=== PATIENT | male | born 1965 | race Caucasian/White ===

== ENCOUNTER 2017-06-15 11:26 | Inpatient (IN) ==
[2017-06-15 12:42] LABS: Basophils % 0.3 % (0.1-2.0); Eosinophils # 0.1 K/mm3 (0.0-0.4); Eosinophils % 0.8 % (0.1-12.0); Hematocrit 45.1 % (42.0-52.0); Lymphocytes # 1.1 K/mm3 (0.7-4.5); Lymphocytes % 8.1 K/mm3 (10-50); Mean Corpuscular HGB Conc 33.2 g/dL (31.8-35.4); Mean Corpuscular Hemoglobin 30.3 pg (27.0-31.2); Mean Corpuscular Volume 91.3 fl (80-94); Mean Platelet Volume 9.8 fl (7.4-10.4); Monocytes # 0.6 K/mm3 (0.1-1.0); Monocytes % 4.4 % (1.7-9.3); Neutrophils # 11.6 K/mm3 (1.8-7.8); Neutrophils % 86.4 % (37.0-80.0); Platelet Count 226 K/mm3 (142-424); Red Blood Count 4.94 M/mm3 (4.60-6.20); Red Cell Distribution Width 12.9 % (11.5-17.5); White Blood Count 13.4 K/mm3 (4.8-10.8)
[2017-06-15 12:54] LABS: Microscopic, Urine URINE MICROSCOPIC (MICROSCOPIC)
[2017-06-15 12:55] LABS: Albumin Level 4.3 gm/dL (3.4-5.0); Albumin/Globulin Ratio 1.2 (1.1-1.8); Anion Gap 11.9 mEq/L (5-15); Bilirubin,Total 0.6 mg/dL (0.2-1.0); Calcium 9.9 mg/dL (8.5-10.1); Globulin 3.5 gm/dl (1.3-3.2); Potassium 3.9 mmoL/L (3.5-5.1); Total Protein,Serum 7.8 gm/dL (6.4-8.2)
[2017-06-15 12:56] LABS: Appearance,Urine CLEAR (Clear); Blood, Urine Negative (Negative); Color,Urine YELLOW (Yellow); Glucose,Urine (UA) Negative (Negative); Ketones,Urine TRACE (Negative); Leukocyte Esterase,Urine Negative (Negative); Protein,Urine TRACE (Negative); Specific Gravity, Urine 1.025 (1.005-1.030); Urobilinogen,Urine 0.2 EU/dl (0.2)
--- NOTE | 2017-06-15 13:01 | Emergency Department Note ---
ED Disposition Clinical Impression: Rectal bleeding, Colitis Disposition: Still a Patient Condition on Discharge: Fair Instructions: DI for Acute Abdomen - Critical Care Critical Care Time: No Attestation: On 06/15/17, the high probability of a clinically significant, sudden or life threatening deterioration of the following system(s) required my full and direct attention, intervention and personal management. The time I documented below is in addition to time spent performing reported procedures but includes the following listed in this critical care notation. Medical Decision Making - David Inquiry Pt receiving controlled substance: No David was queried for this patient: No Vital Signs: 06/15/17 12:04 Temperature 97.6 F Temperature Source Oral Pulse Rate [Right Radial] 71 Respiratory Rate 22 Blood Pressure [Right Arm] 157/78 Blood Pressure Mean [Right Arm] 104 02 Sat by Pulse Oximetry 97 Oxygen Delivery Method Nasal Cannula Oxygen Flow Rate (LPM) 2 - Lab Data Lab Results 06/15/17 12:25: WBC 13.4 H, RBC 4.94, Hgb 15.0, Hct 45.1, MCV 91.3, MCH 30.3, MCHC 33.2, RDW 12.9, Plt Count 226, MPV 9.8, Neut % (Auto) 86.4 H, Lymph % (Auto ) 8.1 L, Irwin % (Auto) 4.4, Eos % (Auto) 0.8, Baso % (Auto) 0.3, Neut # (Auto) 11.6 H, Lymph # (Auto) 1.1, Irwin # (Auto) 0.6, Eos # (Auto) 0.1, Baso # (Auto) 0.0, Total Counted 100, Neutrophils % (Manual) 82 H, Lymphocytes % (Manual) 13, Monocytes % (Manual) 5, Platelet Estimate Normal, RBC Morphology Normal 06/15/17 12:25: Sodium 139, Potassium 3.9, Chloride 102, Carbon Dioxide 29, Anion Gap 11.9, BUN 29 H, Creatinine 1.57 H, Estimated Creat Clear 66, Estimated GFR 47 L, Est GFR ( Amer) 57 L, Glucose 174 H, Calcium 9.9, Total Bilirubin 0.6, AST 27, ALT 27, Alkaline Phosphatase 101, Total Protein 7.8 , Albumin 4.3, Globulin 3.5 H, Albumin/Globulin Ratio 1.2, Amylase 111, Lipase 73 06/15/17 12:25: Lactic Acid 0.7 06/15/17 12:49: Urine Color Yellow, Urine Appearance Clear, Urine pH 6.0, Ur Specific [place] 1.025, Urine Protein Trace, Urine Glucose (UA) Negative, Urine Ketones Trace, Urine Blood Negative, Urine Nitrate Negative, Urine Bilirubin 1+ A, Urine Urobilinogen 0.2, Ur Leukocyte Esterase Negative, Urine RBC None, Urine WBC None, Ur Squamous Epith Cells Occasional, Urine Bacteria Trace 06/15/17 12:56: Stool Occult Blood Positive A Result diagrams: 06/15/17 12:25 06/15/17 12:25 Orders (Tests/Meds): ED MEDICATIONS Generic Name Dose Route Start Last Admin Trade Name Freq PRN Reason Stop Dose Admin Levofloxacin/Dextrose 750 mg in 150 mls @ 100 mls/hr 06/15/17 13:00 06/15/17 13:48 Levofloxacin 750mg/150ml Premix IV 06/29/17 12:59 100 mls/hr Q24H RADHA Administration Protocol Metronidazole 100 mls @ 100 mls/hr 06/15/17 13:00 06/15/17 13:07 Flagyl 500mg/100ml Ivpb IV 06/29/17 12:59 100 mls/hr Q8H RADHA Administration Protocol Morphine Sulfate 2 mg 06/15/17 12:56 Morphine 2mg/2ml Syringe IV 07/15/17 12:55 [id number] PRN Severe Pain Discontinued Medications Generic Name Dose Route Start Last Admin Trade Name Freq PRN Reason Stop Dose Admin Lactated Ringer's 1,000 mls @ 999 mls/hr 06/15/17 12:30 06/15/17 12:31 Lactated Ringer's 1000 Ml Bag IV 06/15/17 13:30 999 mls/hr .Q1H1M RADHA Administration Iopamidol 75 ml 06/15/17 13:37 06/15/17 13:38 [id number]; 50ml Vial IV 06/15/17 13:38 75 ml ONCE ONE Administration Ondansetron HCl 4 mg 06/15/17 12:56 06/15/17 13:07 Zofran 4mg/2ml Vial IV 06/15/17 12:57 4 mg ONCE ONE Administration ORDERS Category Date Time Status Diarrhea Panel, PCR Stat Lab 06/15/17 12:29 Ordered Blood Culture Stat Micro 06/15/17 12:25 Received - CT Data CT Scan: Abdomen, Pelvis Time Received: 14:[address] Reviewed: Yes: I have viewed the radiologist's interpretation Preliminary Findings: Abnormal Findings Narrative: please see the report. Medical Decision Narrative: [address] report with Dr. Sharma the radiologist. He had normal lactic acid and patent superior mesenteric artery. [address] Prieto the surgeon or surgeon who advised to admit the patient and he was seen was in an consultation. [address] Zepeda the on-call medical doctor who accepted to admit the patient for IV fluids antibiotics IV antibiotics pain management and repeat blood work. The patient remained hemodynamically stable his pain was better controlled with morphine IV. Discussed the above findings with the patient and his who was agreeable for admission. Abdominal Pain HPI - General Chief Complaint: Abdominal Pain Stated Complaint: bleeding from rectum Time Seen by Provider: 06/15/17 12:40 Mode of Arrival: Family Vehicle Limitations: No Limitations Description of Symptoms (Recalled from ER Triage Doc. by RN): pt c/o right lower quad pain with rectal bleeding and chills. pt has altered mental status. - History of Present Illness HPI narrative: 51 years old white male with a known past medical history of reflux disease and hypertension. He has been experiencing right sided abdominal pain for the past week that became worse in the last 4 hours and had bowel movements with blood x 3. No history of colonoscopy or colon cancer. MD complaint: abdominal pain Onset (ago): week(s) (one week. worse x 4 hours.) Consistency: constant Severity: severe Quality: sharp Radiation: none Relieving factors: nothing Exacerbating factors: nothing Associated symptoms: other (melanotic stool. ) - Related Data Home Medications Medication Instructions Recorded Confirmed Amitriptyline HCl [Elavil 50mg 50 mg PO DAILY 06/15/17 06/15/17 tablet] Atorvastatin Calcium [Atorvastatin 40 mg PO DAILY 06/15/17 06/15/17 40mg Tab] Dextroamphetamine/Amphetamine 10 mg PO DAILY 06/15/17 06/15/17 [Adderall Xr 10 mg Capsule] Lisinopril [Lisinopril 40mg Tablet] 40 mg PO DAILY 06/15/17 06/15/17 Nabumetone [Nabumetone] 750 mg PO DAILY 06/15/17 06/15/17 Omeprazole [Omeprazole 40mg 40 mg PO DAILY 06/15/17 06/15/17 Capsule] Ondansetron HCl [Ondansetron 4mg 4 mg PO Q6 PRN 06/15/17 06/15/17 Tab] Sertraline HCl [Zoloft 100mg 100 mg PO DAILY 06/15/17 06/15/17 tablet] Tamsulosin HCl [Flomax 0.4mg 0.4 mg PO HS 06/15/17 06/15/17 capsule] Tramadol HCl [Ultram Take Home 50 mg PO QID 06/15/17 06/15/17 Pack 50mg (10)] Allergies Allergy/AdvReac Type Severity Reaction Status Date / Time quetiapine [From SEROQUEL] Allergy Mild Verified 06/15/17 12:32 Penicillins [PENICILLINS] Allergy Unknown Verified 06/15/17 12:32 [facility] History I have reviewed the patient's past medical history: Yes (by the patietn and his . ) Laterality Cases: Bilateral: Carpal Tunnel Release - Social History Smoking Status: Current every day smoker Tobacco Type: cigarettes Alcohol Intake: never - Psychiatric History Expresses thoughts of harming self/others: None Suicide Plan Description: No Plan ROS Obtained: Yes All systems reviewed & no additional complaints Physical Exam - General General appearance: alert, in distress Comment: he is rolling in bed from pain. - Head Head exam: atraumatic, normocephalic, normal inspection - Eye Eye exam: Present: normal appearance, PERRL, EOMI - ENT ENT exam: Present: normal exam, normal oropharynx, mucous membranes moist, TM's normal bilaterally, normal external ear exam - Neck Neck exam: Present: normal inspection, full ROM, trachea midline. Absent: meningismus, lymphadenopathy - Chest Chest inspection: Present: normal inspection, symmetric chest wall rise. Absent : tenderness - Respiratory Respiratory exam: Present: normal lung sounds bilaterally. Absent: respiratory distress - Cardiovascular Cardiovascular exam: Present: regular rate, normal rhythm. Absent: JVD - Abdominal Exam Abdominal exam: Present: soft, normal bowel sounds, other (I repeated his abdominal exam that was soft nontender no guarding no rigidity no rebound no cross tenderness. ). Absent: distention, tenderness, guarding, rebound, rigidity - Rectal Exam Rectal exam: Present: normal inspection, normal rectal tone, heme (+) stool - exam: Present: normal inspection, normal testicular lie, circumcised - Extremities Exam Extremities exam: Present: normal inspection, full ROM, normal capillary refill. Absent: calf tenderness - Back Exam Back exam: Present: normal inspection. Absent: tenderness - Neurological Exam Neurological exam: Present: alert, oriented X3, motor sensory deficit, reflexes normal - Psychiatric Psychiatric exam: Present: normal affect, normal mood - Skin Skin exam: Present: warm, dry, intact, normal color - Lymphatic Lymphatic Findings: no adenopathy
[2017-06-15 13:03] LABS: Bacteria,Urine Trace /lpf; Bilirubin,Urine 1+ (Negative); Squamous Epithelial Cell,Urine Occasional #/hpf (0-5)
[2017-06-15 13:10] LABS: Lymphocytes % 13 % (10-50); Monocytes % 5 % (2-9); Neutrophils % 82 % (42-76); RBC Morphology Normal; Total Cells Counted 100
--- NOTE | 2017-06-15 14:44 | Consult Report ---
*Admission Date: 06/15/17 *Chief complaint: Abdominal pain; blood in stool *History of present illness: This is a 51-year-old gentleman who presented to the emergency department with 4 -5 days of pain throughout the abdomen. He describes the pain as "sharp and crampy". Severity ranges from 5-10 out of 10. No fevers. Mild nausea. No emesis. No recent sick contacts. No melena. Over the past 24 hours she has had a few episodes of what he describes as bright blood in stool. Evaluation in the emergency department included a CT scan that showed changes consistent with colitis. Review of Systems - Constitutional Denies chills - Eyes Denies change in vision - *Cardiovascular Denies chest pain - *Gastrointestinal Reports abdominal pain, Reports bright, red blood in stools [facility] History Medical History: Reports:: Hyperlipidemia, Hypertension Denies:: Asthma, Cancer, Congestive Heart Failure, Chronic Obstructive Pulmonary Disease (COPD) Other Medical History: Denies: Anemia Laterality Cases: Bilateral: Carpal Tunnel Release - *Social History Smoking Status: Current every day smoker Tobacco Type: cigarettes Alcohol Intake: never - Psychiatric History Expresses thoughts of harming self/others: None Suicide Plan Description: No Plan Meds Home Medications Medication Instructions Recorded Confirmed Type Amitriptyline HCl [Elavil 50mg 50 mg PO DAILY 06/15/17 06/15/17 History tablet] Atorvastatin Calcium [Atorvastatin 40 mg PO DAILY 06/15/17 06/15/17 History 40mg Tab] Dextroamphetamine/Amphetamine 10 mg PO DAILY 06/15/17 06/15/17 History [Adderall Xr 10 mg Capsule] Lisinopril [Lisinopril 40mg Tablet] 40 mg PO DAILY 06/15/17 06/15/17 History Nabumetone [Nabumetone] 750 mg PO DAILY 06/15/17 06/15/17 History Omeprazole [Omeprazole 40mg 40 mg PO DAILY 06/15/17 06/15/17 History Capsule] Ondansetron HCl [Ondansetron 4mg 4 mg PO Q6 PRN 06/15/17 06/15/17 History Tab] Sertraline HCl [Zoloft 100mg 100 mg PO DAILY 06/15/17 06/15/17 History tablet] Tamsulosin HCl [Flomax 0.4mg 0.4 mg PO HS 06/15/17 06/15/17 History capsule] Tramadol HCl [Ultram Take Home 50 mg PO QID 06/15/17 06/15/17 History Pack 50mg (10)] Allergies Allergy/AdvReac Type Severity Reaction Status Date / Time quetiapine [From SEROQUEL] Allergy Mild Verified 06/15/17 12:32 Penicillins [PENICILLINS] Allergy Unknown Verified 06/15/17 12:32 Exam Vital signs and Labs for Last 24 Hours: Temp Pulse Resp BP Pulse Ox 97.6 F 71 22 157/78 97 06/15/17 12:04 06/15/17 12:04 06/15/17 12:04 06/15/17 12:04 06/15/17 12:04 - Constitutional mild distress - *Routine Respiratory Exam Absent: respiratory distress - *Routine Cardiovascular Exam Present: RRR - *Routine Abdominal Exam Present: soft, tenderness. Absent: rebound, guarding, rigid Comments: mild to moderate TTP - *Routine Extremities Exam Present: full ROM. Absent: cyanosis, clubbing, edema Results - Labs 06/15/17 12:25 06/15/17 12:25 Assessment and Plan (1) Colitis Current visit: Yes Status: Acute Category: Medical Code(s): K52.9 - Noninfective gastroenteritis and colitis, unspecified The patient is being admitted to the medical service for further evaluation and management. Antibiotics as per primary service Serial abdominal exams Repeat CBC and lactate in a.m. (2) Rectal bleeding Current visit: Yes Status: Acute Category: Medical Code(s): K62.5 - Hemorrhage of anus and rectum Likely secondary to colitis The patient will need a fairly short-term colonoscopy (outpatient). This can hopefully be delayed until he has recovered from his primary illness.
--- NOTE | 2017-06-15 17:07 | History & Physical Report ---
*Admission Date: 06/15/17 *History of present illness: This is a 51-year-old gentleman who presented to the emergency department with 4 -5 days of pain throughout the abdomen. He describes the pain as "sharp and crampy". Severity ranges from 5-10 out of 10. No fevers. Mild nausea. No emesis. No recent sick contacts. No melena. His significant other became concerned when he had at least 2 episodes this morning of feeling the need to use the toilet and produced only blood in the toilet bowl. His significant other states he has been sweaty at times in the himself endorses chills but no fevers. He believes he may had a similar episode of this a few months ago but does not believe the pain was nearly as intense noted symptoms last this long. He denies family history of inflammatory bowel disease. He had a grandfather with an unspecified cancer. Patient himself is a smoker of a pack a day for at least 37 years [facility] History Medical History: Reports:: Hyperlipidemia, Hypertension Denies:: Asthma, Cancer, Congestive Heart Failure, Chronic Obstructive Pulmonary Disease (COPD), Diabetes Mellitus Type 1, Diabetes Mellitus Type 2, Internal Pacemaker Other Medical History: Denies: Anemia Laterality Cases: Bilateral: Carpal Tunnel Release Other Surgeries: No: Pacemaker Amputation: No Fractures: No - *Social History Educational Level: Completed GED/General Educational Development Smoking Status: Current every day smoker Tobacco Type: cigarettes # Packs/Day (cigarettes): 1 #Yrs smoked (if former smoker): 33 Alcohol Intake: never Occupational Status: employed Housing: house Household Members: spouse - Psychiatric History Expresses thoughts of harming self/others: None Suicide Plan Description: No Plan *Family Hx:: Heart Attack, Hyperlipidemia, Hypertension, Kidney Disease, Stroke , Thyroid Disorder Review of Systems - Review of Systems Review of systems:: pertinent systems reviewed and negative unless documented below - Constitutional Reports chills - Eyes Denies change in vision - *Cardiovascular Denies chest pain - *Respiratory Denies shortness of breath - *Gastrointestinal Comments: See HPI - *Genitourinary Denies difficulty urinating Meds Home Medications Medication Instructions Recorded Confirmed Type Atorvastatin Calcium [Atorvastatin 40 mg PO DAILY 06/15/17 06/15/17 History 40mg Tab] Dextroamphetamine/Amphetamine 30 mg PO DAILY 06/15/17 06/15/17 History [Adderall Xr 10 mg Capsule] Lisinopril [Lisinopril 40mg Tablet] 40 mg PO DAILY 06/15/17 06/15/17 History Nabumetone [Nabumetone] 750 mg PO DAILY 06/15/17 06/15/17 History Omeprazole [Omeprazole 40mg 40 mg PO DAILY 06/15/17 06/15/17 History Capsule] Ondansetron HCl [Ondansetron 4mg 4 mg PO Q6 PRN 06/15/17 06/15/17 History Tab] Sertraline HCl [Zoloft 100mg 150 mg PO DAILY 06/15/17 06/15/17 History tablet] Tamsulosin HCl [Flomax 0.4mg 0.4 mg PO HS 06/15/17 06/15/17 History capsule] Tramadol HCl [Ultram Take Home 50 mg PO QID 06/15/17 06/15/17 History Pack 50mg (10)] Allergies Allergy/AdvReac Type Severity Reaction Status Date / Time quetiapine [From SEROQUEL] Allergy Mild Verified 06/15/17 12:32 Penicillins [PENICILLINS] Allergy Unknown Verified 06/15/17 12:32 Exam Vital signs and Labs for Last 24 Hours: Temp Pulse Resp BP Pulse Ox 97.7 F 56 L 18 155/81 97 06/15/17 15:08 06/15/17 15:08 06/15/17 15:08 06/15/17 15:08 06/15/17 12:04 Narrative: Patient is in bed and appears diaphoretic and pale. Skin is with the touch. Pupils are reactive to light. Oropharynx is moist. Neck is without lymphadenopathy. Lungs are clear to auscultation. Heart has a regular rate and rhythm. Abdomen is soft with initial right lower quadrant tenderness to palpation that dissipates with repeated examination. Bowel sounds are present. Assessment and Plan (1) Colitis Current visit: Yes Status: Acute Category: Medical Code(s): K52.9 - Noninfective gastroenteritis and colitis, unspecified (2) Rectal bleeding Current visit: Yes Status: Acute Category: Medical Code(s): K62.5 - Hemorrhage of anus and rectum - Assessment and plan all Dx Assessment and Plan for all problems:: Patient's colitis does not sound infectious. A diarrhea PCR panel will be ordered. I am actually going to hold antibiotics at this time. Consideration could be given to inflammatory bowel disease as patient recalls a similar episode although not as intense. At this time will begin primary treatment with IV fluids and keeping the patient n.p.o. and controlling pain. I have ordered an H&H for later this evening and a CBC has been ordered for the morning.
[2017-06-15 21:09] LABS: Hematocrit 42.8 % (42.0-52.0); Hemoglobin 14.5 g/dL (14.1-18.0)
[2017-06-16 06:42] LABS: Albumin Level 3.6 gm/dL (3.4-5.0); Albumin/Globulin Ratio 1.1 (1.1-1.8); Anion Gap 10.3 mEq/L (5-15); Bilirubin,Total 0.7 mg/dL (0.2-1.0); Globulin 3.3 gm/dl (1.3-3.2); Potassium 4.3 mmoL/L (3.5-5.1); Total Protein,Serum 6.9 gm/dL (6.4-8.2)
[2017-06-16 06:49] LABS: Hematocrit 41.5 % (42.0-52.0); Hemoglobin 14.2 g/dL (14.1-18.0); Mean Corpuscular HGB Conc 34.1 g/dL (31.8-35.4); Red Blood Count 4.56 M/mm3 (4.60-6.20); White Blood Count 16.6 K/mm3 (4.8-10.8)
[2017-06-16 06:50] LABS: Mean Platelet Volume 9.7 fl (7.4-10.4); Platelet Count 205 K/mm3 (142-424); Red Cell Distribution Width 12.8 % (11.5-17.5)
[2017-06-16 06:51] LABS: Basophils % 0.1 % (0.1-2.0); Eosinophils % 0.5 % (0.1-12.0); Lymphocytes % 5.9 K/mm3 (10-50); Monocytes % 5.9 % (1.7-9.3); Neutrophils # 14.5 K/mm3 (1.8-7.8); Neutrophils % 87.7 % (37.0-80.0)
[2017-06-16 06:53] LABS: Eosinophils # 0.1 K/mm3 (0.0-0.4)
--- NOTE | 2017-06-16 06:57 | Progress Note ---
Subjective Patient reports: no new complaints Exam Vital signs and Labs for Last 24 Hours: Temp Pulse Resp BP Pulse Ox 98.8 F 85 16 146/78 97 06/16/17 04:00 06/16/17 04:00 06/16/17 04:00 06/16/17 04:53 06/16/17 04:00 Laboratory Results - last 24 hr 06/15/17 20:57: Hgb 14.5, Hct 42.8 I & O for Last 24 hours: Intake & Output 06/13/17 06/14/17 06/15/17 06/16/17 11:59 11:59 11:59 11:59 Intake Total 1646 / 2896 Balance 1646 / 2646 - Constitutional no acute distress - *Routine Respiratory Exam Absent: respiratory distress - *Routine Abdominal Exam Present: soft Comments: somewhat less TTP Progress Note: A&P (1) Colitis Status: Acute Assessment and plan: Undetermined etiology...possible infectious origin...possible inflammatory bowel disease. Changes less likely secondary to ischemia. Serial abdominal exam Follow-up a.m. labs Colonoscopy may be required on a more urgent basis if he does not continue to improve or decompensates. Colonoscopy may also be necessary for further evaluation and management and determination of etiology. Otherwise, it will hopefully be accomplished as an outpatient after he improves. Possible GI consultation for evaluation (and treatment if he does not have infectious etiology). Current Visit: Yes (2) Rectal bleeding Status: Acute Current Visit: Yes
[2017-06-16 07:16] LABS: Calcium 8.8 mg/dL (8.5-10.1)
--- NOTE | 2017-06-16 07:38 | Progress Note ---
Internal Medicine - PN: Subj *Date: 06/16/17 *Time: 07:36 Interval history: Patient had another bloody bowel movement this morning but has not had any further vomiting. He continues to have abdominal pain Exam Vital signs and Labs for Last 24 Hours: Temp Pulse Resp BP Pulse Ox 98.8 F 85 16 146/78 97 06/16/17 04:00 06/16/17 04:00 06/16/17 04:00 06/16/17 04:53 06/16/17 04:00 Laboratory Results - last 24 hr 06/15/17 20:57: Hgb 14.5, Hct 42.8 06/16/17 06:15: WBC 16.6 H, RBC 4.56 L, Hgb 14.2, Hct 41.5 L, MCV 91.0, MCH 31.0 , MCHC 34.1, RDW 12.8, Plt Count 205, MPV 9.7, Neut % (Auto) 87.7 H, Lymph % ( Auto) 5.9 L, Green % (Auto) 5.9, Eos % (Auto) 0.5, Baso % (Auto) 0.1, Neut # ( Auto) 14.5 H, Lymph # (Auto) 1.0, Green # (Auto) 1.0, Eos # (Auto) 0.1, Baso # ( Auto) 0.0 06/16/17 06:15: Sodium 141, Potassium 4.3, Chloride 107, Carbon Dioxide 28, Anion Gap 10.3, BUN 17 D, Creatinine 0.99 D, Estimated Creat Clear 107, Estimated GFR 80, Est GFR ( Amer) 97 D, Glucose 142 H, Calcium 8.8 D, Magnesium 1.9, Total Bilirubin 0.7, AST 14 L D, ALT 23, Alkaline Phosphatase 83 , Total Protein 6.9, Albumin 3.6 D, Globulin 3.3 H, Albumin/Globulin Ratio 1.1 06/16/17 06:15: Lactic Acid 0.6 I & O for Last 24 hours: Intake & Output 06/13/17 06/14/17 06/15/17 06/16/17 11:59 11:59 11:59 11:59 Intake Total 1646 / 2896 Balance 1646 / 2646 Narrative: Patient looks better overall. Lungs are clear. Heart has a regular rate and rhythm. Abdomen is soft with mild left-sided tenderness today. No guarding. Assessment and Plan (1) Colitis Current visit: Yes Status: Acute Category: Medical Code(s): K52.9 - Noninfective gastroenteritis and colitis, unspecified (2) Rectal bleeding Current visit: Yes Status: Acute Category: Medical Code(s): K62.5 - Hemorrhage of anus and rectum - Assessment and plan all Dx Assessment and Plan for all problems:: Patient's white count has risen but H&H's remained stable. I am going to start Levaquin and Flagyl and continue daily Solu-Medrol for the possibility of inflammatory bowel disease. Repeat labs in a.m. Advance diet today
--- NOTE | 2017-06-16 07:43 | Pharmacy Consult Notes ---
[facility] Pharmacy VTE Monitoring - Patient Demographics Admission date: 06/15/17 Report Date: 06/16/17 Time: 07:43 Allergies/Adverse Reactions: Patient Allergies quetiapine [From SEROQUEL] Allergy (Mild, Verified 06/15/17 12:32) Penicillins [PENICILLINS] Allergy (Unknown, Verified 06/15/17 12:32) Height: 1.75 m Weight: 83.7 kg Patient Problems: Current Active Problems Rectal bleeding (Acute) Colitis (Acute) - VTE Risk Labs: VTE Related Lab Results Hgb 14.2 g/dL (14.1-18.0) 06/16/17 06:15 Hct 41.5 % (42.0-52.0) L 06/16/17 06:15 Plt Count 205 K/mm3 (142-424) 06/16/17 06:15 BUN 17 mg/dL (7-18) D 06/16/17 06:15 Creatinine 0.99 mg/dL (0.70-1.30) D 06/16/17 06:15 Estimated Creat Clear 107 mL/min (0-300) 06/16/17 06:15 Was VTE Risk Assessment Performed: Yes VTE Score: 1 VTE Risk Level: Very Low Risk Clinical Trial Participant: No - Prophylaxis VTE Prophylaxis Ordered?: Yes Types of VTE Prophylaxis: TEDS Knee High
[2017-06-16 11:50] LABS: Lymphocytes % 5 % (10-50); Monocytes % 4 % (2-9); Neutrophils % 89 % (42-76); Total Cells Counted 100
[2017-06-17 06:53] LABS: Basophils % 0.2 % (0.1-2.0); Eosinophils # 0.2 K/mm3 (0.0-0.4); Hematocrit 41.8 % (42.0-52.0); Hemoglobin 13.8 g/dL (14.1-18.0); Lymphocytes # 2.1 K/mm3 (0.7-4.5); Lymphocytes % 13.7 K/mm3 (10-50); Mean Corpuscular HGB Conc 32.9 g/dL (31.8-35.4); Mean Corpuscular Hemoglobin 30.4 pg (27.0-31.2); Mean Corpuscular Volume 92.4 fl (80-94); Mean Platelet Volume 9.6 fl (7.4-10.4); Monocytes # 0.7 K/mm3 (0.1-1.0); Monocytes % 4.9 % (1.7-9.3); Neutrophils % 80.1 % (37.0-80.0); Platelet Count 185 K/mm3 (142-424); Red Blood Count 4.53 M/mm3 (4.60-6.20); Red Cell Distribution Width 12.8 % (11.5-17.5); White Blood Count 14.9 K/mm3 (4.8-10.8)
[2017-06-17 07:05] LABS: Albumin Level 3.3 gm/dL (3.4-5.0); Anion Gap 8.8 mEq/L (5-15); Bilirubin,Total 0.6 mg/dL (0.2-1.0); Calcium 8.8 mg/dL (8.5-10.1); Globulin 3.3 gm/dl (1.3-3.2); Potassium 3.8 mmoL/L (3.5-5.1); Total Protein,Serum 6.6 gm/dL (6.4-8.2)
--- NOTE | 2017-06-17 07:21 | Progress Note ---
Internal Medicine - PN: Subj *Date: 06/17/17 *Time: 07:19 Interval history: Patient states he is feeling better. Pain seems to be localizing to his left side. He has not had a bowel movement since yesterday morning when he passed blood. He has had some nausea but has tolerated a liquid diet Exam Vital signs and Labs for Last 24 Hours: Temp Pulse Resp BP Pulse Ox 98.3 F 79 20 118/76 93 L 06/17/17 04:00 06/17/17 04:00 06/17/17 04:00 06/17/17 04:00 06/17/17 04:00 Laboratory Results - last 24 hr 06/16/17 06:15: WBC 16.6 H, Total Counted 100, Neutrophils % (Manual) 89 H, Band Neutrophils % 2.0, Lymphocytes % (Manual) 5 L, Monocytes % (Manual) 4, Platelet Estimate Normal, RBC Morphology Not Reportable 06/17/17 06:33: WBC 14.9 H, RBC 4.53 L, Hgb 13.8 L, Hct 41.8 L, MCV 92.4, MCH 30.4, MCHC 32.9, RDW 12.8, Plt Count 185, MPV 9.6, Neut % (Auto) 80.1 H, Lymph % (Auto) 13.7, Stephens % (Auto) 4.9, Eos % (Auto) 1.0, Baso % (Auto) 0.2, Neut # ( Auto) 12.0 H, Lymph # (Auto) 2.1, [place] # (Auto) 0.7, Eos # (Auto) 0.2, Baso # ( Auto) 0.0 06/17/17 06:33: Sodium 143, Potassium 3.8, Chloride 108 H, Carbon Dioxide 30, Anion Gap 8.8, BUN 12 D, Creatinine 0.99, Estimated Creat Clear 107, Estimated GFR 80, Est GFR ( Amer) 97, Glucose 110 H, Calcium 8.8, Total Bilirubin 0.6, AST 12 L, ALT 20, Alkaline Phosphatase 69, Total Protein 6.6, Albumin 3.3 L , Globulin 3.3 H, Albumin/Globulin Ratio 1.0 L I & O for Last 24 hours: Intake & Output 04/11/18 04/12/18 04/13/18 04/14/18 11:59 11:59 11:59 11:59 Intake Total 1746 / 2996 1476 / 1476 Balance 1746 / 2746 1476 / 1476 Weight 184 lb 8.43 oz 184 lb 8.43 oz Narrative: He looks more comfortable. Abdomen is soft with left lower quadrant tenderness to palpation. Bowel sounds are present Assessment and Plan (1) Colitis Current visit: Yes Status: Acute Category: Medical Code(s): K52.9 - Noninfective gastroenteritis and colitis, unspecified (2) Rectal bleeding Current visit: Yes Status: Acute Category: Medical Code(s): K62.5 - Hemorrhage of anus and rectum - Assessment and plan all Dx Assessment and Plan for all problems:: Patient showing signs of improvement can. Continue liquid diet. Continue steroids and IV antibiotics. If patient continues to improve anticipate discharge tomorrow
--- NOTE | 2017-06-17 14:11 | Progress Note ---
Subjective Patient reports: no new complaints, feels better, pain is less Exam Vital signs and Labs for Last 24 Hours: Temp Pulse Resp BP Pulse Ox 98.4 F 71 18 111/70 97 06/17/17 08:00 06/17/17 08:00 06/17/17 08:00 06/17/17 08:00 06/17/17 08:00 Laboratory Results - last 24 hr 06/17/17 06:33: WBC 14.9 H, RBC 4.53 L, Hgb 13.8 L, Hct 41.8 L, MCV 92.4, MCH 30.4, MCHC 32.9, RDW 12.8, Plt Count 185, MPV 9.6, Neut % (Auto) 80.1 H, Lymph % (Auto) 13.7, [place] % (Auto) 4.9, Eos % (Auto) 1.0, Baso % (Auto) 0.2, Neut # ( Auto) 12.0 H, Lymph # (Auto) 2.1, [place] # (Auto) 0.7, Eos # (Auto) 0.2, Baso # ( Auto) 0.0 06/17/17 06:33: Sodium 143, Potassium 3.8, Chloride 108 H, Carbon Dioxide 30, Anion Gap 8.8, BUN 12 D, Creatinine 0.99, Estimated Creat Clear 107, Estimated GFR 80, Est GFR ( Amer) 97, Glucose 110 H, Calcium 8.8, Total Bilirubin 0.6, AST 12 L, ALT 20, Alkaline Phosphatase 69, Total Protein 6.6, Albumin 3.3 L , Globulin 3.3 H, Albumin/Globulin Ratio 1.0 L I & O for Last 24 hours: Intake & Output 06/14/17 06/15/17 06/16/17 06/17/17 23:59 23:59 23:59 23:59 Intake Total 3322 / 3322 2621 / 2621 Balance 3322 / 3322 2621 / 2621 Weight 184 lb 8.43 oz - *Routine Abdominal Exam Present: soft. Absent: tenderness, distended, rebound, guarding Comments: soft, nondistended, minimally tender. Progress Note: A&P (1) Colitis Status: Acute Current Visit: Yes (2) Rectal bleeding Status: Acute Current Visit: Yes Assessment and Plan for All Diagnoses:: Overall feeling better. Nausea has resolved, tolerating liquids and asking for solid food. Advance diet as tolerated. Has not had BM today. Continue antibiotics and steroids per primary.
[2017-06-18 07:09] LABS: Basophils % 0.2 % (0.1-2.0); Eosinophils # 0.1 K/mm3 (0.0-0.4); Eosinophils % 0.8 % (0.1-12.0); Hematocrit 41.9 % (42.0-52.0); Hemoglobin 13.7 g/dL (14.1-18.0); Lymphocytes # 1.6 K/mm3 (0.7-4.5); Mean Corpuscular HGB Conc 32.7 g/dL (31.8-35.4); Mean Corpuscular Hemoglobin 30.1 pg (27.0-31.2); Mean Corpuscular Volume 92.2 fl (80-94); Mean Platelet Volume 9.8 fl (7.4-10.4); Monocytes # 0.8 K/mm3 (0.1-1.0); Monocytes % 5.8 % (1.7-9.3); Neutrophils % 82.3 % (37.0-80.0); Platelet Count 179 K/mm3 (142-424); Red Blood Count 4.55 M/mm3 (4.60-6.20); Red Cell Distribution Width 12.4 % (11.5-17.5); White Blood Count 14.6 K/mm3 (4.8-10.8)
[2017-06-18 07:18] LABS: Albumin Level 3.3 gm/dL (3.4-5.0); Anion Gap 9.6 mEq/L (5-15); Bilirubin,Total 0.5 mg/dL (0.2-1.0); Calcium 8.9 mg/dL (8.5-10.1); Globulin 3.3 gm/dl (1.3-3.2); Potassium 4.6 mmoL/L (3.5-5.1); Total Protein,Serum 6.6 gm/dL (6.4-8.2)
--- NOTE | 2017-06-18 08:03 | Progress Note ---
Internal Medicine - PN: Subj *Date: 06/18/17 *Time: 08:01 Interval history: Overnight patient had a bowel movement which triggered an episode of intense pain that required an extra dose of morphine. This morning the nursing staff tells me the patient is asking for pain medication quite regularly and continues to have nausea. He denies increase in hunger and does not wish for solid foods at time. This is a contrast to what he told Dr. Chiu yesterday. As the morning has progressed patient is also claimed he was not given his morphine and became quite upset about this. Exam Vital signs and Labs for Last 24 Hours: Temp Pulse Resp BP Pulse Ox 98.6 F 61 18 159/96 98 06/18/17 07:33 06/18/17 07:33 06/18/17 07:33 06/18/17 07:33 06/18/17 07:33 Laboratory Results - last 24 hr 06/18/17 06:45: WBC 14.6 H, RBC 4.55 L, Hgb 13.7 L, Hct 41.9 L, MCV 92.2, MCH 30.1, MCHC 32.7, RDW 12.4, Plt Count 179, MPV 9.8, Neut % (Auto) 82.3 H, Lymph % (Auto) 11.0, [place] % (Auto) 5.8, Eos % (Auto) 0.8, Baso % (Auto) 0.2, Neut # ( Auto) 12.0 H, Lymph # (Auto) 1.6, [place] # (Auto) 0.8, Eos # (Auto) 0.1, Baso # ( Auto) 0.0 06/18/17 06:45: Sodium 139, Potassium 4.6 D, Chloride 103, Carbon Dioxide 31, Anion Gap 9.6, BUN 11, Creatinine 0.87, Estimated Creat Clear 122, Estimated GFR 93, Est GFR ( Amer) 113, Glucose 117 H, Calcium 8.9, Total Bilirubin 0.5, AST 11 L, ALT 22, Alkaline Phosphatase 65, Total Protein 6.6, Albumin 3.3 L , Globulin 3.3 H, Albumin/Globulin Ratio 1.0 L I & O for Last 24 hours: Intake & Output 06/15/17 06/16/17 06/17/17 06/18/17 11:59 11:59 11:59 11:59 Intake Total 1846 / 3096 3647 / 3647 3365 / 3365 Output Total 1100 / 1100 Balance 1846 / 2846 3647 / 3647 2265 / 2265 Weight 184 lb 8.43 oz 184 lb 8.43 oz Narrative: Patient appears in mild to moderate amount of discomfort and is agitated. Abdomen is soft with left lower quadrant tenderness to palpation without rebound or guarding. Bowel sounds are present. Assessment and Plan (1) Colitis Current visit: Yes Status: Acute Category: Medical Code(s): K52.9 - Noninfective gastroenteritis and colitis, unspecified (2) Rectal bleeding Current visit: Yes Status: Acute Category: Medical Code(s): K62.5 - Hemorrhage of anus and rectum - Assessment and plan all Dx Assessment and Plan for all problems:: 1. Continue antibiotics and steroids although his white count is unchanged 2. GI consult tomorrow 3. Increase strength of morphine but also increased frequency with which he receives it. Add Toradol for pain as well.
--- NOTE | 2017-06-18 13:18 | Progress Note ---
Subjective Patient reports: bowel movement, nausea Narrative: Patient was feeling better yesterday afternoon until he had a BM. He states the BM was hard but did not require a lot of straining and did not contain blood , but his LLQ and suprapubic pain increased immediately afterwards requiring increased doses of morphine. He also reported worsening nausea that has been controlled with PRN antiemetics. He had requested a regular diet yesterday, which he subsequently declined, and is now back on clears and doing ok with it. Pain is improved now but still worse than when I saw him yesterday. Exam Vital signs and Labs for Last 24 Hours: Temp Pulse Resp BP Pulse Ox 98.6 F 61 18 159/96 98 06/18/17 07:33 06/18/17 07:33 06/18/17 07:33 06/18/17 07:33 06/18/17 08:00 Laboratory Results - last 24 hr 06/18/17 06:45: WBC 14.6 H, RBC 4.55 L, Hgb 13.7 L, Hct 41.9 L, MCV 92.2, MCH 30.1, MCHC 32.7, RDW 12.4, Plt Count 179, MPV 9.8, Neut % (Auto) 82.3 H, Lymph % (Auto) 11.0, [place] % (Auto) 5.8, Eos % (Auto) 0.8, Baso % (Auto) 0.2, Neut # ( Auto) 12.0 H, Lymph # (Auto) 1.6, [place] # (Auto) 0.8, Eos # (Auto) 0.1, Baso # ( Auto) 0.0 06/18/17 06:45: Sodium 139, Potassium 4.6 D, Chloride 103, Carbon Dioxide 31, Anion Gap 9.6, BUN 11, Creatinine 0.87, Estimated Creat Clear 122, Estimated GFR 93, Est GFR ( Amer) 113, Glucose 117 H, Calcium 8.9, Total Bilirubin 0.5, AST 11 L, ALT 22, Alkaline Phosphatase 65, Total Protein 6.6, Albumin 3.3 L , Globulin 3.3 H, Albumin/Globulin Ratio 1.0 L I & O for Last 24 hours: Intake & Output 06/15/17 06/16/17 06/17/17 06/18/17 23:59 23:59 23:59 23:59 Intake Total 3322 / 3322 3221 / 3221 2875 / 2875 Output Total 1100 / 1100 600 / 600 Balance 3322 / 3322 2121 / 2121 2275 / 2275 Weight 184 lb 8.43 oz - *Routine Respiratory Exam Present: CTA bilaterally. Absent: accessory muscle use, decreased breath sounds , respiratory distress - *Routine Cardiovascular Exam Present: RRR. Absent: tachycardia - *Routine Abdominal Exam Present: soft. Absent: distended, rebound, guarding Comments: minimal tenderness to palpation in LLQ and suprapubic region. Progress Note: A&P (1) Colitis Status: Acute Current Visit: Yes (2) Rectal bleeding Status: Acute Current Visit: Yes Assessment and Plan for All Diagnoses:: Worsening pain overnight with nausea, improved with narcotics and antiemetics. Diet backed down to liquids. Exam remains benign. WBC slightly lower (14.6 from 14.9 today). Continue diet as tolerated. Agree with GI consult tomorrow.
[2017-06-19 07:10] LABS: Basophils % 0.4 % (0.1-2.0); Eosinophils # 0.1 K/mm3 (0.0-0.4); Eosinophils % 1.5 % (0.1-12.0); Hematocrit 39.2 % (42.0-52.0); Hemoglobin 12.9 g/dL (14.1-18.0); Lymphocytes # 2.3 K/mm3 (0.7-4.5); Lymphocytes % 26.5 K/mm3 (10-50); Mean Corpuscular HGB Conc 32.8 g/dL (31.8-35.4); Mean Corpuscular Hemoglobin 30.3 pg (27.0-31.2); Mean Corpuscular Volume 92.2 fl (80-94); Mean Platelet Volume 9.5 fl (7.4-10.4); Monocytes # 0.5 K/mm3 (0.1-1.0); Neutrophils # 5.6 K/mm3 (1.8-7.8); Neutrophils % 65.6 % (37.0-80.0); Platelet Count 169 K/mm3 (142-424); Red Blood Count 4.25 M/mm3 (4.60-6.20); Red Cell Distribution Width 12.4 % (11.5-17.5); White Blood Count 8.6 K/mm3 (4.8-10.8)
--- NOTE | 2017-06-19 07:20 | Progress Note ---
Internal Medicine - PN: Subj *Date: 06/19/17 *Time: 07:18 Interval history: Patient states he is feeling significantly better since yesterday after Toradol was added to his regimen for pain control. He has only required 2 doses of pain medication since noon yesterday. He also admits that he is hungry. Exam Vital signs and Labs for Last 24 Hours: Temp Pulse Resp BP Pulse Ox 98.2 F 60 20 100/69 96 06/19/17 07:09 06/19/17 07:09 06/19/17 07:09 06/19/17 07:09 06/19/17 07:09 Laboratory Results - last 24 hr 06/18/17 06:45: WBC 14.6 H, RBC 4.55 L, Hgb 13.7 L, Hct 41.9 L, MCV 92.2, MCH 30.1, MCHC 32.7, RDW 12.4, Plt Count 179, MPV 9.8, Neut % (Auto) 82.3 H, Lymph % (Auto) 11.0, [place] % (Auto) 5.8, Eos % (Auto) 0.8, Baso % (Auto) 0.2, Neut # ( Auto) 12.0 H, Lymph # (Auto) 1.6, [place] # (Auto) 0.8, Eos # (Auto) 0.1, Baso # ( Auto) 0.0 06/18/17 06:45: Sodium 139, Potassium 4.6 D, Chloride 103, Carbon Dioxide 31, Anion Gap 9.6, BUN 11, Creatinine 0.87, Estimated Creat Clear 122, Estimated GFR 93, Est GFR ( Amer) 113, Glucose 117 H, Calcium 8.9, Total Bilirubin 0.5, AST 11 L, ALT 22, Alkaline Phosphatase 65, Total Protein 6.6, Albumin 3.3 L , Globulin 3.3 H, Albumin/Globulin Ratio 1.0 L 06/19/17 06:05: WBC 8.6 D, RBC 4.25 L, Hgb 12.9 L, Hct 39.2 L, MCV 92.2, MCH 30.3, MCHC 32.8, RDW 12.4, Plt Count 169, MPV 9.5, Neut % (Auto) 65.6, Lymph % ( Auto) 26.5, [place] % (Auto) 6.0, Eos % (Auto) 1.5, Baso % (Auto) 0.4, Neut # (Auto ) 5.6, Lymph # (Auto) 2.3, [place] # (Auto) 0.5, Eos # (Auto) 0.1, Baso # (Auto) 0.0 I & O for Last 24 hours: Intake & Output 06/16/17 06/17/17 06/18/17 06/19/17 11:59 11:59 11:59 11:59 Intake Total 3096 / 3096 3747 / 3747 3565 / 3565 3361 / 3361 Output Total 250 / 250 1100 / 1100 1650 / 1650 Balance 2846 / 2846 3747 / 3747 2465 / 2465 1711 / 1711 Weight 184 lb 8.43 oz 184 lb 8.43 oz Narrative: Patient does not appear to be in any pain. He still has mild tenderness of the left lower quadrant but significant improvement in exam since yesterday Assessment and Plan (1) Colitis Current visit: Yes Status: Acute Category: Medical Code(s): K52.9 - Noninfective gastroenteritis and colitis, unspecified (2) Rectal bleeding Current visit: Yes Status: Acute Category: Medical Code(s): K62.5 - Hemorrhage of anus and rectum - Assessment and plan all Dx Assessment and Plan for all problems:: Patient has improved significantly this morning. I will still wait for evaluation by Dr. Sanchez of the GI service and then we can advance the patient' s diet. If he tolerates this and there is no GI interventions planned patient may be discharged home later today
--- NOTE | 2017-06-19 07:35 | Progress Note ---
Internal Medicine - PN: Subj *Date: 06/19/17 *Time: 07:35 Exam Vital signs and Labs for Last 24 Hours: Temp Pulse Resp BP Pulse Ox 98.2 F 60 20 100/69 96 06/19/17 07:09 06/19/17 07:09 06/19/17 07:09 06/19/17 07:09 06/19/17 07:09 Laboratory Results - last 24 hr 06/18/17 06:45: Sodium 139, Potassium 4.6 D, Chloride 103, Carbon Dioxide 31, Anion Gap 9.6, BUN 11, Creatinine 0.87, Estimated Creat Clear 122, Estimated GFR 93, Est GFR ( Amer) 113, Glucose 117 H, Calcium 8.9, Total Bilirubin 0.5, AST 11 L, ALT 22, Alkaline Phosphatase 65, Total Protein 6.6, Albumin 3.3 L , Globulin 3.3 H, Albumin/Globulin Ratio 1.0 L 06/19/17 06:05: WBC 8.6 D, RBC 4.25 L, Hgb 12.9 L, Hct 39.2 L, MCV 92.2, MCH 30.3, MCHC 32.8, RDW 12.4, Plt Count 169, MPV 9.5, Neut % (Auto) 65.6, Lymph % ( Auto) 26.5, [place] % (Auto) 6.0, Eos % (Auto) 1.5, Baso % (Auto) 0.4, Neut # (Auto ) 5.6, Lymph # (Auto) 2.3, [place] # (Auto) 0.5, Eos # (Auto) 0.1, Baso # (Auto) 0.0 I & O for Last 24 hours: Intake & Output 06/16/17 06/17/17 06/18/17 06/19/17 23:59 23:59 23:59 23:59 Intake Total 3322 / 3322 3221 / 3221 4595 / 4595 1381 / 1381 Output Total 1100 / 1100 800 / 800 850 / 850 Balance 3322 / 3322 2121 / 2121 3795 / 3795 531 / 531 Weight 83.7 kg Assessment and Plan (1) Colitis Current visit: Yes Status: Acute Category: Medical Code(s): K52.9 - Noninfective gastroenteritis and colitis, unspecified (2) Rectal bleeding Current visit: Yes Status: Acute Category: Medical Code(s): K62.5 - Hemorrhage of anus and rectum The patient's infection will respond to the chosen ABx?: Yes Is the patient receiving the right drug, dose, and route?: Yes Could a more targeted ABx be ordered?: No
--- NOTE | 2017-06-19 08:02 | Progress Note ---
Subjective Narrative: Patient sleeping extremely soundly this morning. Exam Vital signs and Labs for Last 24 Hours: Temp Pulse Resp BP Pulse Ox 98.2 F 60 20 100/69 96 06/19/17 07:09 06/19/17 07:09 06/19/17 07:09 06/19/17 07:09 06/19/17 07:09 Laboratory Results - last 24 hr 06/19/17 06:05: WBC 8.6 D, RBC 4.25 L, Hgb 12.9 L, Hct 39.2 L, MCV 92.2, MCH 30.3, MCHC 32.8, RDW 12.4, Plt Count 169, MPV 9.5, Neut % (Auto) 65.6, Lymph % ( Auto) 26.5, [place] % (Auto) 6.0, Eos % (Auto) 1.5, Baso % (Auto) 0.4, Neut # (Auto ) 5.6, Lymph # (Auto) 2.3, [place] # (Auto) 0.5, Eos # (Auto) 0.1, Baso # (Auto) 0.0 I & O for Last 24 hours: Intake & Output 06/16/17 06/17/17 06/18/17 06/19/17 11:59 11:59 11:59 11:59 Intake Total 3096 / 3096 3747 / 3747 3565 / 3565 3361 / 3361 Output Total 250 / 250 1100 / 1100 1650 / 1650 Balance 2846 / 2846 3747 / 3747 2465 / 2465 1711 / 1711 Weight 184 lb 8.43 oz 184 lb 8.43 oz Progress Note: A&P (1) Colitis Status: Acute Assessment and plan: GI evaluation today. Current Visit: Yes (2) Rectal bleeding Status: Acute Current Visit: Yes
[2017-06-19 08:05] LABS: Albumin Level 2.9 gm/dL (3.4-5.0); Bilirubin,Total 0.4 mg/dL (0.2-1.0); Calcium 8.4 mg/dL (8.5-10.1); Globulin 2.9 gm/dl (1.3-3.2); Total Protein,Serum 5.8 gm/dL (6.4-8.2)
[2017-06-19 08:40] LABS: Anion Gap 7.7 mEq/L (5-15); Potassium 3.7 mmoL/L (3.5-5.1)
--- NOTE | 2017-06-19 14:55 | Procedure Note ---
[facility] Procedure Note Procedure Note:: Flexible Sigmoidoscopy Procedure Report: Sigmoidoscopy with cold biopsies Endoscopist: Sky Sanchez II, MD Referring physician: Jaxon Zepeda MD Date of Procedure: June 19, 2017 Equipment: Olympus 180 variable stiffness pediatric colonoscope Sedation: MAC sedation Indication: Mr. Langston is a 51-year-old gentleman with left lower quadrant abdominal pain and discomfort for a longer period of time and possibly years. The patient does state that he passed a cupful of bright red blood per rectum. He has had some nausea. At the time of his presentation to the emergency department, he did undergo CT scan of the abdomen on 06/15/2017 showing mild diffuse thickening of the descending and proximal sigmoid colon with pericolic fat stranding suggestive of colitis. The patient did have a white blood cell count of 13.4 on admission and this did increase. The patient has never had a colonoscopy. He reports no family history of colitis, Crohn's disease or colon cancer. He has had a 30 pound weight loss over the past few months and attributes this to stress. He reports regular bowel function and no diarrhea or constipation. Procedure: Prior to the procedure, a history and physical exam was performed, and patient' s medications and allergies were reviewed. The risks, benefits and alternatives of the sedation and procedure were discussed with the patient. All questions were answered and informed consent was obtained. The patient was brought to the procedure room. Patient identification and proposed procedure were verified by the physician and the nurse. The patient was placed in a left lateral decubitus position and the scope was passed under direct vision. Throughout the procedure, the patient's blood pressure, pulse, and oxygen saturations were monitored continuously. The colonoscopy was accomplished without difficulty. The patient tolerated the procedure well. Findings: On digital rectal examination there was normal rectal tone. There were no external hemorrhoids. The colonoscope was then introduced through the anal canal into the rectum and advanced to the transverse colon beyond the splenic flexure. There was solid stool identified in the transverse colon. Within the descending and proximal sigmoid colon there was some haustral edema and mucosal erythema suggestive of resolving acute self-limited colitis. Cold biopsies were obtained from the descending and sigmoid colon. The rectosigmoid and rectum appeared to be essentially normal. Upon retroflexion within the rectum there were grade 1 internal hemorrhoids. Impression: 1. Mild edema/erythema of descending/proximal sigmoid colon suggestive of resolving acute self-limited colitis 2. Grade 1 internal hemorrhoids Plan: I would complete antibiotics. PCR gastrointestinal panel reportedly negative.
--- NOTE | 2017-06-19 14:59 | Procedure Note ---
[facility] Procedure Note Procedure Note:: Flexible Sigmoidoscopy Procedure Report: Sigmoidoscopy with cold biopsies Endoscopist: Sky Sanchez II, MD Referring physician: Jaxon Zepeda MD Date of Procedure: June 19, 2017 Equipment: Olympus 180 variable stiffness pediatric colonoscope Sedation: MAC sedation Indication: Mr. Langston is a 51-year-old gentleman with left lower quadrant abdominal pain and discomfort for a longer period of time and possibly years. The patient does state that he passed a cupful of bright red blood per rectum. He has had some nausea. At the time of his presentation to the emergency department, he did undergo CT scan of the abdomen on 06/15/2017 showing mild diffuse thickening of the descending and proximal sigmoid colon with pericolic fat stranding suggestive of colitis. The patient did have a white blood cell count of 13.4 on admission and this did increase to greater than 16,000. The patient has never had a colonoscopy. He reports no family history of colitis, Crohn's disease or colon cancer. He has had a 30 pound weight loss over the past few months and attributes this to stress. He reports regular bowel function and no diarrhea or constipation. Procedure: Prior to the procedure, a history and physical exam was performed, and patient' s medications and allergies were reviewed. The risks, benefits and alternatives of the sedation and procedure were discussed with the patient. All questions were answered and informed consent was obtained. The patient was brought to the procedure room. Patient identification and proposed procedure were verified by the physician and the nurse. The patient was placed in a left lateral decubitus position and the scope was passed under direct vision. Throughout the procedure, the patient's blood pressure, pulse, and oxygen saturations were monitored continuously. The colonoscopy was accomplished without difficulty. The patient tolerated the procedure well. Findings: On digital rectal examination there was normal rectal tone. There were no external hemorrhoids. The colonoscope was then introduced through the anal canal into the rectum and advanced to the transverse colon beyond the splenic flexure. There was solid stool identified in the transverse colon. Within the descending and proximal sigmoid colon there was some haustral edema and mucosal erythema suggestive of resolving acute self-limited colitis. Cold biopsies were obtained from the descending and sigmoid colon. The rectosigmoid and rectum appeared to be essentially normal. Upon retroflexion within the rectum there were grade 1 internal hemorrhoids. Impression: 1. Mild edema/erythema of descending/proximal sigmoid colon suggestive of resolving acute self-limited colitis 2. Grade 1 internal hemorrhoids Plan: I would complete antibiotics (Flagyl). PCR gastrointestinal panel does not appear to be completed. The patient was Hemoccult negative with negative blood cultures. I would continue dietary measures and anti-spasmodic (). I will discuss the findings with the patient and family. I would recommend full colonoscopy in a few months once he has recovered.
[2017-06-20 06:58] LABS: Basophils % 0.2 % (0.1-2.0); Eosinophils # 0.1 K/mm3 (0.0-0.4); Eosinophils % 0.8 % (0.1-12.0); Hematocrit 37.9 % (42.0-52.0); Hemoglobin 12.5 g/dL (14.1-18.0); Lymphocytes # 2.1 K/mm3 (0.7-4.5); Lymphocytes % 21.1 K/mm3 (10-50); Mean Corpuscular HGB Conc 32.9 g/dL (31.8-35.4); Mean Corpuscular Hemoglobin 29.9 pg (27.0-31.2); Mean Corpuscular Volume 90.8 fl (80-94); Mean Platelet Volume 9.5 fl (7.4-10.4); Monocytes # 0.7 K/mm3 (0.1-1.0); Monocytes % 6.4 % (1.7-9.3); Neutrophils # 7.2 K/mm3 (1.8-7.8); Neutrophils % 71.5 % (37.0-80.0); Platelet Count 189 K/mm3 (142-424); Red Blood Count 4.18 M/mm3 (4.60-6.20); Red Cell Distribution Width 12.4 % (11.5-17.5); White Blood Count 10.1 K/mm3 (4.8-10.8)
[2017-06-20 07:11] LABS: Albumin Level 2.6 gm/dL (3.4-5.0); Albumin/Globulin Ratio 0.9 (1.1-1.8); Anion Gap 8.2 mEq/L (5-15); Bilirubin,Total 0.3 mg/dL (0.2-1.0); Calcium 8.8 mg/dL (8.5-10.1); Potassium 3.2 mmoL/L (3.5-5.1); Total Protein,Serum 5.6 gm/dL (6.4-8.2)
--- NOTE | 2017-06-20 07:18 | Discharge Summary ---
General - General Admission date: 06/15/17 Discharge date: 06/20/17 HPI HPI: This is a 51-year-old gentleman who presented to the emergency department with 4 -5 days of pain throughout the abdomen. He describes the pain as "sharp and crampy". Severity ranges from 5-10 out of 10. No fevers. Mild nausea. No emesis. No recent sick contacts. No melena. His significant other became concerned when he had at least 2 episodes this morning of feeling the need to use the toilet and produced only blood in the toilet bowl. His significant other states he has been sweaty at times in the himself endorses chills but no fevers. He believes he may had a similar episode of this a few months ago but does not believe the pain was nearly as intense noted symptoms last this long. He denies family history of inflammatory bowel disease. He had a grandfather with an unspecified cancer. Patient himself is a smoker of a pack a day for at least 37 years Hospital Course Hospital Course: Patient was admitted and placed on Levaquin and Flagyl for his colitis. For the 24 hours following admission he continued to have bowel movements with bright red blood. Morphine was used to treat his pain. Patient improved a little each day. After 48 hours his diet was advanced to clear liquids. He had cessation of blood in stools. On the environmental health and safety manager of the patient had a normal bowel movement which triggered quite a bit of pain. At that time his morphine was increased but the patient also had Toradol added to his regimen which he responded to quite well. Due to his sudden increase in pain gastroenterology was consulted. Patient underwent flexible sigmoidoscopy on the which showed an area of resolving self-limited colitis. It was recommended that he be continued on Flagyl as well as an antispasmodic at discharge. Patient was kept overnight due to his discomfort. On the morning of the his pain had decreased again. He was tolerating liquids. He was discharged home. Patient will follow up with his primary care physician next week. He will have a colonoscopy at the age of 52. Objective Vital signs: Temp Pulse Resp BP Pulse Ox 98.4 F 64 18 136/71 97 06/20/17 04:01 06/20/17 04:01 06/20/17 04:01 06/20/17 04:01 06/20/17 04:01 Results Labs on day of discharge: Labs from last 24 hours 06/20/17 06/19/17 06:00 06:05 WBC 10.1 RBC 4.18 L Hgb 12.5 L Hct 37.9 L MCV 90.8 MCH 29.9 MCHC 32.9 RDW 12.4 Plt Count 189 MPV 9.5 Neut % (Auto) 71.5 Lymph % (Auto) 21.1 [place] % (Auto) 6.4 Eos % (Auto) 0.8 Baso % (Auto) 0.2 Neut # (Auto) 7.2 Lymph # (Auto) 2.1 [place] # (Auto) 0.7 Eos # (Auto) 0.1 Baso # (Auto) 0.0 Sodium 139 Potassium 3.7 Chloride 106 Carbon Dioxide 29 Anion Gap 7.7 BUN 14 D Creatinine 0.87 Estimated Creat Clear 122 Estimated GFR 93 Est GFR ( Amer) 113 Glucose 95 Calcium 8.4 L Total Bilirubin 0.4 AST 9 L ALT 16 D Alkaline Phosphatase 57 Total Protein 5.8 L Albumin 2.9 L D Globulin 2.9 Albumin/Globulin Ratio 1.0 L DS: Diagnosis - Discharge Diagnosis (1) Colitis Status: Acute (2) Rectal bleeding Status: Acute Discharge Plan - Patient Discharge Instructions ACTIVITY: Continue current activity DIET: continue same diet - Follow up Plan Follow up with: Loki Prieto MD [Staff Physician] - 1 week Gregory Garcia [Referring] - Disposition: Home, Self-Fdc Medications: Home Medications Medication Instructions Recorded Confirmed Type Atorvastatin Calcium [Atorvastatin 40 mg PO DAILY 06/15/17 06/15/17 History 40mg Tab] Dextroamphetamine/Amphetamine 30 mg PO DAILY 06/15/17 06/15/17 History [Adderall Xr 10 mg Capsule] Lisinopril [Lisinopril 40mg Tablet] 40 mg PO DAILY 06/15/17 06/15/17 History Nabumetone [Nabumetone] 750 mg PO DAILY 06/15/17 06/15/17 History Omeprazole [Omeprazole 40mg 40 mg PO DAILY 06/15/17 06/15/17 History Capsule] Ondansetron HCl [Ondansetron 4mg 4 mg PO Q6 PRN 06/15/17 06/15/17 History Tab] Sertraline HCl [Zoloft 100mg 150 mg PO DAILY 06/15/17 06/15/17 History tablet] Tamsulosin HCl [Flomax 0.4mg 0.4 mg PO HS 06/15/17 06/15/17 History capsule] Tramadol HCl [[place] Take Home 50 mg PO QID 06/15/17 06/15/17 History Pack 50mg (10)] Prescriptions/Medication Reconciliation: New metroNIDAZOLE [metroNIDAZOLE 500mg Tablet] 500 mg PO TID #21 tab Phenobarb/Hyoscy/Atropine/Scop [ Tablet] 16.2 mg PO Q4HP PRN #30 tab PRN Reason: stomach cramps Hydrocodone/Acetaminophen [[place] 7.5-325 Tablet] 1 tab PO Q6HP PRN #20 tab PRN Reason: pain Continue Tamsulosin HCl [Flomax 0.4mg capsule] 0.4 mg PO HS Tramadol HCl [[place] Take Home Pack 50mg (10)] 50 mg PO QID Sertraline HCl [Zoloft 100mg tablet] 150 mg PO DAILY Omeprazole [Omeprazole 40mg Capsule] 40 mg PO DAILY Nabumetone [Nabumetone] 750 mg PO DAILY Lisinopril [Lisinopril 40mg Tablet] 40 mg PO DAILY Dextroamphetamine/Amphetamine [Adderall Xr 10 mg Capsule] 30 mg PO DAILY Atorvastatin Calcium [Atorvastatin 40mg Tab] 40 mg PO DAILY Ondansetron HCl [Ondansetron 4mg Tab] 4 mg PO Q6 PRN PRN Reason: Nausea
[2017-06-20 08:30] VITALS: BP 136/91
== END 2017-06-20 08:55 | disposition home or self-care (01) ==
LOC: 2ND 11:26 → ER 11:26 → OBSVTOIN 14:50 → 2ND 15:18
PROVIDERS: ADMIT Family Medicine; ATTEND Family Medicine

== ENCOUNTER 2018-09-29 16:03 | Observation (INO) ==
--- NOTE | 2018-09-29 16:15 | Emergency Department Note ---
ED Disposition Clinical Impression: Abdominal pain, left lower quadrant Disposition: Admitted as Observation Condition on Discharge: Fair - Critical Care Critical Care Time: No Attestation: On 09/29/18, the high probability of a clinically significant, sudden or life threatening deterioration of the following system(s) required my full and direct attention, intervention and personal management. The time I documented below is in addition to time spent performing reported procedures but includes the following listed in this critical care notation. Medical Decision Making - David Inquiry Pt receiving controlled substance: Yes David was queried for this patient: Yes Reference #:: [id number] Risks and benefits of using a controlled substance: were not discussed with pt by me Comment: 26 rxs. last rxs 120 Tramadol 09/16/18, adderal Vital Signs: 09/29/18 16:12 09/29/18 17:04 Temperature 97.9 F Temperature Source Oral Pulse Rate [Right Brachial] 61 54 L Respiratory Rate 22 12 Blood Pressure [Right Arm] 170/108 H 169/94 H Blood Pressure Mean [Right Arm] 128 119 Blood Pressure Source [Right Arm] Automatic Cuff Blood Pressure Position [Right Arm] Sitting 02 Sat by Pulse Oximetry 99 98 Oxygen Delivery Method Room Air Room Air - Lab Data Lab Results 09/29/18 16:17: WBC 12.0 H, RBC 5.04, Hgb 14.7, Hct 44.0, MCV 87.3, MCH 29.2, MCHC 33.4, RDW 12.8, Plt Count 262, MPV 8.8, Neut % (Auto) 82.1 H, Lymph % (Auto) 12.2, [place] % (Auto) 5.0, Eos % (Auto) 0.5, Baso % (Auto) 0.2, Neut # (Auto) 9.8 H, Lymph # (Auto) 1.5, [place] # (Auto) 0.6, Eos # (Auto) 0.1, Baso # (Auto) 0.0 09/29/18 16:17: Sodium 134 L, Potassium 4.5, Chloride 99, Carbon Dioxide 27, Anion Gap 12.5, BUN 16, Creatinine 1.10, Estimated Creat Clear 97, Estimated GFR 71, Est GFR ( Amer) 85, Glucose 103, Calcium 9.1, Total Bilirubin 0.7, AST 9 L, ALT 22, Alkaline Phosphatase 69, Total Protein 7.6 D, Albumin 4.0, Globulin 3.6 H, Albumin/Globulin Ratio 1.1, Amylase 107, Lipase 143 09/29/18 16:17: ESR 8 09/29/18 16:17: C-Reactive Protein < 0.2 09/29/18 16:44: Urine Color Yellow, Urine Appearance Clear, Urine pH 8.0, Ur Specific [place] 1.015, Urine Protein Negative, Urine Glucose (UA) Negative, Urine Ketones Negative, Urine Blood Negative, Urine Nitrate Negative, Urine Bilirubin Negative, Urine Urobilinogen 0.2, Ur Leukocyte Esterase Negative, Urine WBC Occasional, Ur Squamous Epith Cells Occasional, Urine Bacteria Trace Result diagrams: 09/29/18 16:17 09/29/18 16:17 Orders (Tests/Meds): ED MEDICATIONS Generic Name Dose Route Start Last Admin Trade Name Freq PRN Reason Stop Dose Admin Sodium Chloride 1,000 mls @ 999 mls/hr 09/29/18 16:30 09/29/18 16:21 Sod Chlor 0.9% 1000ml Bag IV 09/29/18 17:30 999 mls/hr .Q1H1M RADHA Administration Discontinued Medications Generic Name Dose Route Start Last Admin Trade Name Freq PRN Reason Stop Dose Admin Ioversol 75 ml 09/29/18 17:09 09/29/18 17:10 Rad-Optiray 350 100ml Vial IV 09/29/18 17:10 75 ml ONCE ONE Administration Protocol Ketorolac Tromethamine 30 mg 09/29/18 16:53 09/29/18 17:12 Toradol 30mg/Ml Vial IV 09/29/18 16:54 30 mg ONCE ONE Administration Morphine Sulfate 4 mg 09/29/18 16:23 09/29/18 16:45 Morphine 4mg/Ml Syringe IV 09/29/18 16:24 4 mg ONCE ONE Administration Morphine Sulfate 4 mg 09/29/18 18:07 09/29/18 18:24 Morphine 4mg/Ml Syringe IV 09/29/18 18:08 4 mg ONCE ONE Administration Ondansetron HCl 4 mg 09/29/18 16:23 09/29/18 16:45 Zofran 4mg/2ml Vial IV 09/29/18 16:24 4 mg ONCE ONE Administration Sodium Chloride 10 ml 09/29/18 17:09 09/29/18 17:10 Rad-Saline Flush 10ml Syringe IV 09/29/18 17:10 10 ml ONCE ONE Administration ORDERS Category Date Time Status CT abdomen pelvis w con Stat Cat Scan 09/29/18 16:[address] abdomen pelvis w con Stat Cat Scan 09/29/18 18:35 Ordered - CT Data CT Scan: Abdomen, Pelvis Time Received: 18:[address] Reviewed: Yes: I discussed the CT results w/the radiologist Findings Narrative: Discussed with Rachele tejada radiologist: Abnormal clump of small bowel loops in the left lower quadrant worrisome for closed loop small bowel obstruction. 6:15 PM: Written report received from [facility]. Narrative: There is no dilatation of small bowel loops by the usual CT criteria. However, in the left upper pelvis there is a group of small bowel loops that are clumped together without any intervening fat . In addition the luminal contents of these loops is a much lower density than the remainder of the small bowel. This was also the case on the CT of 06/15/2017 to a much lesser extent. Abnormal. Impression: Abnormal loops of small bowel in the left upper pelvis that are clumped together and show abnormal luminal contents. There is no definite evidence of ischemia. However, it is possible this represents an early form of closed-loop obstruction due to adhesions. - Physician Consults Physician Consulted: Conner Time: 18:07 Reason -: Surgical Eval/Care Comment/Response: Discussed case. He will review the CT scan and see the patient. 6:25 PM: Dr. Prieto has spoken with Rachele tejada radiologist. They recommend that the patient have oral contrast, repeat scan in [address] Bustillos's service and he will follow-up this can result. N.p.o., IV fluids, repeat labs in the morning. Medical Decision Narrative: Admit June 2017 for colitis: CT Abdo/Pelvis: FINDINGS: Lung bases are clear. The liver, gallbladder, spleen, adrenal glands, pancreas and kidneys have an unremarkable appearance aside from a small isodensity of the right kidney laterally in the left millimeters probably related to a cyst There is mild diffuse thickening of the descending and sigmoid colon with very minimal stranding of the pericolic fat consistent with colitis. There is also mild thickening of the distal ascending colon, hepatic flexure, and transverse colon which could be due to nondistention or colitis. There is no evidence of pneumobilia. No evidence of diverticulitis. There are some fluid-filled loops of small bowel are nonspecific. No evidence of portal venous gas. No pelvic mass or abnormal fluid collection or focal inflammatory change. There is mild distention of the stomach fluid-filled. No acute bony anomalies. IMPRESSION: 1. Mild diffuse thickening of the descending and proximal sigmoid colon with minimal infiltration of the pericolic fat consistent with colitis. There is also thickening of the hepatic flexure and transverse colon which could also be due to colitis versus nondistention. No portal venous gas or pneumobilia. 2. Mild distention of the stomach which is fluid filled Dictated By: Jaron Sharma MD Signed By: <Electronically signed by Jaron Sharma MD in OV> 06/15/17 1403 Flex/Sig: Impression: 1. Mild edema/erythema of descending/proximal sigmoid colon suggestive of resolving acute self-limited colitis 2. Grade 1 internal hemorrhoids Plan: I would complete antibiotics (Flagyl). PCR gastrointestinal panel does not appear to be completed. The patient was Hemoccult negative with negative blood cultures. I would continue dietary measures and anti-spasmodic (). I will discuss the findings with the patient and family. I would recommend full colonoscopy in a few months once he has recovered. Documented By: Sky Sanchez MD 06/19/17 1156 (Patient did not follow-up for full colonoscopy). General Adult HPI - General Stated complaint: Abdominal pain,vomiting 4 days,low blood pressure Time Seen by Provider: 09/29/18 16:14 - History of Present Illness HPI narrative: 4-day history of left lower quadrant abdominal pain. Temperature 100.2 last night with chills. Blood pressure 92/62 the night before that. No diarrhea or rectal bleeding. Last bowel movement 2 days ago. Poor appetite. No vomiting, but having dry heaves. Last tried to eat yesterday. Admitted last June for something similar, diagnosed with colitis. Had rectal bleeding at that time as well. No recurrences since then. - Related Data Home Medications Medication Instructions Recorded Confirmed Atorvastatin Calcium [Atorvastatin 40 mg PO DAILY 06/15/17 09/29/18 40mg Tab] Dextroamphetamine/Amphetamine 30 mg PO DAILY 06/15/17 09/29/18 [Adderall Xr 10 mg Capsule] Lisinopril [Lisinopril 40mg Tablet] 40 mg PO DAILY 06/15/17 09/29/18 Nabumetone 750 mg PO DAILY 06/15/17 09/29/18 Omeprazole [Omeprazole 40mg 40 mg PO DAILY 06/15/17 09/29/18 Capsule] Ondansetron HCl [Ondansetron 4mg 4 mg PO Q6 PRN 06/15/17 09/29/18 Tab] Sertraline HCl [Zoloft 100mg 150 mg PO DAILY 06/15/17 09/29/18 tablet] Tamsulosin HCl [Flomax 0.4mg 0.4 mg PO HS 06/15/17 09/29/18 capsule] Tramadol HCl [Ultram Take Home 50 mg PO QID 06/15/17 09/29/18 Pack 50mg (10)] Previous Rx's Medication Instructions Recorded Hydrocodone/Acetaminophen [[place] 1 tab PO Q6HP PRN #20 tab 06/20/17 7.5-325 Tablet] Allergies Allergy/AdvReac Type Severity Reaction Status Date / Time quetiapine [From SEROQUEL] Allergy Mild Verified 06/15/17 12:32 Penicillins [PENICILLINS] Allergy Unknown Verified 06/15/17 12:32 [facility] History - Hepatitis A Screen Attestation statement:: This patient has been screened for Hepatitis A risk factors. I have reviewed the patient's past medical history: Yes Medical History: Reports:: Hyperlipidemia, Hypertension Denies:: Asthma, Cancer, Congestive Heart Failure, Chronic Obstructive Pulmonary Disease (COPD), Diabetes Mellitus Type 1, Diabetes Mellitus Type 2, Internal Pacemaker Other Medical History: Denies: Anemia Laterality Cases: Bilateral: Carpal Tunnel Release Other Surgeries: No: Pacemaker Amputation: No Fractures: No - Social History Smoking Status: Current every day smoker Tobacco Type: cigarettes # Packs/Day (cigarettes): 1 #Yrs smoked (if former smoker): 33 Alcohol Intake: never Occupational Status: employed Housing: house Household Members: spouse Family Hx:: Heart Attack, Hyperlipidemia, Hypertension, Kidney Disease, Stroke, Thyroid Disorder ROS Obtained: Yes All systems reviewed & no additional complaints - Constitutional Constitutional: Reports chills, Reports fever(s), Reports poor appetite - Gastrointestinal Gastrointestingal: Reports: abdominal pain, nausea. Denies: diarrhea, bright red blood in stools, black, tarry stools, vomiting Physical Exam - General General appearance: alert Comment: Appears uncomfortable - Head Head exam: atraumatic, normocephalic - Eye Eye exam: Present: normal appearance, EOMI - ENT ENT exam: Present: mucous membranes dry - Neck Neck exam: Present: normal inspection, trachea midline - Chest Chest inspection: Present: normal inspection, symmetric chest wall rise - Respiratory Respiratory exam: Present: normal lung sounds bilaterally. Absent: respiratory distress - Cardiovascular Cardiovascular exam: Present: regular rate, normal rhythm, normal heart sounds - Abdominal Exam Abdominal exam: Present: soft, tenderness, normal bowel sounds. Absent: distention, guarding, rebound, rigidity Abdominal tenderness: Present: diffuse - Extremities Exam Extremities exam: Present: normal inspection - Neurological Exam Neurological exam: Present: alert, oriented X3 - Psychiatric Psychiatric exam: Present: normal affect, normal mood - Skin Skin exam: Present: pallor
[2018-09-29 16:32] LABS: Basophils % 0.2 % (0.1-2.0); Eosinophils # 0.1 K/mm3 (0.0-0.4); Eosinophils % 0.5 % (0.1-12.0); Hemoglobin 14.7 g/dL (14.1-18.0); Lymphocytes # 1.5 K/mm3 (0.7-4.5); Lymphocytes % 12.2 % (10-50); Mean Corpuscular HGB Conc 33.4 g/dL (31.8-35.4); Mean Corpuscular Volume 87.3 fl (80-94); Mean Platelet Volume 8.8 fl (7.4-10.4); Monocytes # 0.6 K/mm3 (0.1-1.0); Neutrophils # 9.8 K/mm3 (1.8-7.8); Neutrophils % 82.1 % (37.0-80.0); Platelet Count 262 K/mm3 (142-424); Red Blood Count 5.04 M/mm3 (4.60-6.20); Red Cell Distribution Width 12.8 % (11.5-17.5)
[2018-09-29 16:45] LABS: Albumin/Globulin Ratio 1.1 (1.1-1.8); Anion Gap 12.5 mEq/L (5-15); Bilirubin,Total 0.7 mg/dL (0.2-1.0); Calcium 9.1 mg/dL (8.5-10.1); Globulin 3.6 gm/dl (1.3-3.2); Total Protein,Serum 7.6 gm/dL (6.4-8.2)
[2018-09-29 16:49] LABS: Microscopic, Urine URINE MICROSCOPIC (MICROSCOPIC)
[2018-09-29 16:50] LABS: Appearance,Urine CLEAR (Clear); Bilirubin,Urine Negative (Negative); Blood, Urine Negative (Negative); Color,Urine YELLOW (Yellow); Glucose,Urine (UA) Negative (Negative); Ketones,Urine Negative (Negative); Leukocyte Esterase,Urine Negative (Negative); Protein,Urine Negative (Negative); Specific Gravity, Urine 1.015 (1.005-1.030); Urobilinogen,Urine 0.2 EU/dl (0.2)
[2018-09-29 16:58] LABS: Bacteria,Urine Trace /lpf; Squamous Epithelial Cell,Urine Occasional #/hpf (0-5); WBC,Urine Occasional #/hpf (0-3)
[2018-09-30 06:24] LABS: Basophils % 0.7 % (0.1-2.0); Eosinophils # 0.1 K/mm3 (0.0-0.4); Hematocrit 37.3 % (42.0-52.0); Lymphocytes # 2.1 K/mm3 (0.7-4.5); Lymphocytes % 30.8 % (10-50); Mean Corpuscular HGB Conc 32.9 g/dL (31.8-35.4); Mean Corpuscular Volume 88.5 fl (80-94); Mean Platelet Volume 8.7 fl (7.4-10.4); Monocytes # 0.4 K/mm3 (0.1-1.0); Neutrophils # 4.1 K/mm3 (1.8-7.8); Neutrophils % 60.5 % (37.0-80.0); Platelet Count 201 K/mm3 (142-424); Red Blood Count 4.22 M/mm3 (4.60-6.20); Red Cell Distribution Width 12.9 % (11.5-17.5); White Blood Count 6.8 K/mm3 (4.8-10.8)
[2018-09-30 06:28] LABS: Hemoglobin 12.3 g/dL (14.1-18.0)
[2018-09-30 06:31] LABS: Anion Gap 9.9 mEq/L (5-15); Calcium 8.2 mg/dL (8.5-10.1)
--- NOTE | 2018-09-30 08:07 | Pharmacy Consult Notes ---
[facility] Pharmacy VTE Monitoring - Patient Demographics Admission date: 09/29/18 Report Date: 09/30/18 Time: 08:06 Allergies/Adverse Reactions: Patient Allergies quetiapine [From SEROQUEL] Allergy (Mild, Verified 06/15/17 12:32) Penicillins [PENICILLINS] Allergy (Unknown, Verified 06/15/17 12:32) Height: 1.73 m Weight: 82.327 kg Patient Problems: Current Active Problems (Updated 09/29/18 @ 18:29 by Marcus Hawkins MD) Abdominal pain, left lower quadrant (Acute) - VTE Risk Labs: VTE Related Lab Results Hgb 12.3 g/dL (14.1-18.0) L D 09/30/18 06:07 Hct 37.3 % (42.0-52.0) L 09/30/18 06:07 Plt Count 201 K/mm3 (142-424) 09/30/18 06:07 BUN 13 mg/dL (7-18) 09/30/18 06:07 Creatinine 1.07 mg/dL (0.70-1.30) 09/30/18 06:07 Estimated Creat Clear 95 mL/min (50-200) 09/30/18 06:07 Was VTE Risk Assessment Performed: Yes VTE Score: 3 VTE Risk Level: Low Risk - Prophylaxis VTE Prophylaxis Ordered?: Yes Types of VTE Prophylaxis: TEDS Knee High Location of Applied Device: Bilateral Lower Extremeties - VTE Diagnosis Confirmed Treatment or plan recommended: Continue Current Treatment
--- NOTE | 2018-09-30 09:47 | H&P/Discharge Summary ---
General - General Admission date:: 09/29/18 Discharge date: 09/30/18 *Admission Date: 09/29/18 *Chief complaint: Abdominal pain *History of present illness: This is a 53-year-old gentleman with a long history of intermittent abdominal pain. He states that over the past few years he has "an attack every month or so". No fevers. No bright red blood per rectum. No hematemesis. Mild associated nausea. He describes the pain as "kind of sharp and kind of crampy". He has been evaluated by gastroenterology and had a flexible sigmoidoscopy with recommendations for follow-up completion colonoscopy. This was never completed. He presented to the emergency department yesterday afternoon with increasing pain in the mid and lower abdomen. A CT scan without contrast revealed concerns for possible impending closed-loop obstruction with recommendations for repeat CT scan with oral contrast. A repeat CT scan revealed improvement and plain films this morning reveal contrast within the colon. He states his pain was 100 out of 100 yesterday and now is 4 out of 100. Overall he states he is "pretty okay now" and wants to go home. [facility] History Medical History: Reports:: Hyperlipidemia, Hypertension Denies:: Asthma, Cancer, Congestive Heart Failure, Chronic Obstructive Pulmonary Disease (COPD), Diabetes Mellitus Type 1, Diabetes Mellitus Type 2, Internal Pacemaker *Have you ever received a pneumonia vaccine?: No *Have you received a flu vaccine this season?: No Other Medical History: Denies: Anemia Laterality Cases: Bilateral: Carpal Tunnel Release Other Surgeries: Yes: Cardiac Catheterization. No: Pacemaker Amputation: No Fractures: No - *Social History Educational Level: Completed High School Smoking Status: Current every day smoker Tobacco Type: cigarettes # Packs/Day (cigarettes): 1 #Yrs smoked (if former smoker): 33 Alcohol Intake: current Alcohol Intake Frequency:: holidays/special occasions only *Occupational Status:: employed Housing: house Household Members: spouse *Travel in the last 8 weeks: None - Psychiatric History Expresses thoughts of harming self/others: None Suicide Plan Description: No Plan Family Hx:: Heart Attack, Hyperlipidemia, Hypertension, Kidney Disease, Stroke, Thyroid Disorder Review of Systems - Constitutional Denies body ache(s) - Eyes Denies change in vision - ENT Denies change in voice, Denies difficulty swallowing - *Cardiovascular Denies chest pain - *Respiratory Denies cough - *Gastrointestinal Reports abdominal pain, Denies bright, red blood in stools, Denies black, tarry stools, Denies vomiting - *Genitourinary Denies difficulty urinating - *Musculoskeletal Denies abnormal walking - Integumentary/Breasts Denies lesions - *Neurologic Denies confusion - Psychiatric Denies anxiety - Endocrine Denies flushing - Hematologic/Lymphatic Denies easy bleeding - Allergic/Immunologic Denies wheezing Exam Vital signs and Labs for Last 24 Hours: Temp Pulse Resp BP Pulse Ox 98.4 F 58 L 17 102/58 L 97 09/30/18 04:00 09/30/18 04:00 09/30/18 04:00 09/30/18 04:00 09/30/18 09:03 Laboratory Results - last 24 hr 09/29/18 16:17: WBC 12.0 H, RBC 5.04, Hgb 14.7, Hct 44.0, MCV 87.3, MCH 29.2, MCHC 33.4, RDW 12.8, Plt Count 262, MPV 8.8, Neut % (Auto) 82.1 H, Lymph % (Auto) 12.2, [place] % (Auto) 5.0, Eos % (Auto) 0.5, Baso % (Auto) 0.2, Neut # ( Auto) 9.8 H, Lymph # (Auto) 1.5, [place] # (Auto) 0.6, Eos # (Auto) 0.1, Baso # (Auto) 0.0 09/29/18 16:17: Sodium 134 L, Potassium 4.5, Chloride 99, Carbon Dioxide 27, Anion Gap 12.5, BUN 16, Creatinine 1.10, Estimated Creat Clear 97, Estimated GFR 71, Est GFR ( Amer) 85, Glucose 103, Calcium 9.1, Total Bilirubin 0.7, AST 9 L, ALT 22, Alkaline Phosphatase 69, Total Protein 7.6 D, Albumin 4.0, Globulin 3.6 H, Albumin/Globulin Ratio 1.1, Amylase 107, Lipase 143 09/29/18 16:17: ESR 8 09/29/18 16:17: C-Reactive Protein < 0.2 09/29/18 16:44: Urine Color Yellow, Urine Appearance Clear, Urine pH 8.0, Ur Specific [place] 1.015, Urine Protein Negative, Urine Glucose (UA) Negative, Urine Ketones Negative, Urine Blood Negative, Urine Nitrate Negative, Urine Bilirubin Negative, Urine Urobilinogen 0.2, Ur Leukocyte Esterase Negative, Urine WBC Occasional, Ur Squamous Epith Cells Occasional, Urine Bacteria Trace 09/30/18 06:07: WBC 6.8 D, RBC 4.22 L, Hgb 12.3 L D, Hct 37.3 L, MCV 88.5, MCH 29.1, MCHC 32.9, RDW 12.9, Plt Count 201, MPV 8.7, Neut % (Auto) 60.5, Lymph % (Auto) 30.8, [place] % (Auto) 6.0, Eos % (Auto) 2.0, Baso % (Auto) 0.7, Neut # (Auto) 4.1, Lymph # (Auto) 2.1, [place] # (Auto) 0.4, Eos # (Auto) 0.1, Baso # (Auto) 0.0 09/30/18 06:07: Sodium 140, Potassium 3.9, Chloride 105, Carbon Dioxide 29, Anion Gap 9.9, BUN 13, Creatinine 1.07, Estimated Creat Clear 95, Estimated GFR 73, Est GFR ( Amer) 88, Glucose 93, Calcium 8.2 L I & O for Last 24 hours: Intake & Output 09/27/18 09/28/18 09/29/18 09/30/18 11:59 11:59 11:59 11:59 Intake Total 1150 / 1150 Balance 1150 / 1150 Weight 181 lb 8 oz - Constitutional no acute distress - *Routine HEENT Exam Head: Present: normocephalic, atraumatic - *Routine Neck Exam Present: full ROM - Routine Chest/Breast/Axilla Exam Chest wall: Absent: tenderness - *Routine Respiratory Exam Absent: respiratory distress - *Routine Cardiovascular Exam Present: RRR - *Routine Abdominal Exam Present: soft. Absent: distended Comments: Currently nontender - *Routine Extremities Exam Present: full ROM. Absent: cyanosis, clubbing, edema - Routine Back/Spine/Pelvis Exam Back/Spine: Absent: muscle spasm - *Routine Skin Exam Present: intact - *Routine Neurological Exam Present: alert, oriented X3 - Routine Psychiatric Exam Present: normal affect Hospital Course Hospital Course: The patient was admitted for observation with serial abdominal exams and follow- up abdominal films. He was placed on Levaquin/Flagyl secondary to potential for inflammatory/infectious process as the etiology of his symptoms/radiographic findings. On the morning after his admission he was without complaint. His pain was dramatically improved and follow-up abdominal films revealed contrast within the colon and no sign of definitive obstruction. He remained afebrile with stable and normal vital signs. He was requesting discharge home with close outpatient follow-up. Results Labs on day of discharge: Labs from last 24 hours 09/30/18 09/30/18 09/29/18 06:07 06:07 16:44 WBC 6.8 D RBC 4.22 L Hgb 12.3 L D Hct 37.3 L MCV 88.5 MCH 29.1 MCHC 32.9 RDW 12.9 Plt Count 201 MPV 8.7 Neut % (Auto) 60.5 Lymph % (Auto) 30.8 [place] % (Auto) 6.0 Eos % (Auto) 2.0 Baso % (Auto) 0.7 Neut # (Auto) 4.1 Lymph # (Auto) 2.1 [place] # (Auto) 0.4 Eos # (Auto) 0.1 Baso # (Auto) 0.0 ESR Sodium 140 Potassium 3.9 Chloride 105 Carbon Dioxide 29 Anion Gap 9.9 BUN 13 Creatinine 1.07 Estimated Creat Clear 95 Estimated GFR 73 Est GFR ( Amer) 88 Glucose 93 Calcium 8.2 L Total Bilirubin AST ALT Alkaline Phosphatase C-Reactive Protein Total Protein Albumin Globulin Albumin/Globulin Ratio Amylase Lipase Urine Color Yellow Urine Appearance Clear Urine pH 8.0 Ur Specific [place] 1.015 Urine Protein Negative Urine Glucose (UA) Negative Urine Ketones Negative Urine Blood Negative Urine Nitrate Negative Urine Bilirubin Negative Urine Urobilinogen 0.2 Ur Leukocyte Esterase Negative Urine WBC Occasional Ur Squamous Epith Cells Occasional Urine Bacteria Trace 09/29/18 09/29/18 09/29/18 16:17 16:17 16:17 WBC RBC Hgb Hct MCV MCH MCHC RDW Plt Count MPV Neut % (Auto) Lymph % (Auto) [place] % (Auto) Eos % (Auto) Baso % (Auto) Neut # (Auto) Lymph # (Auto) [place] # (Auto) Eos # (Auto) Baso # (Auto) ESR 8 Sodium 134 L Potassium 4.5 Chloride 99 Carbon Dioxide 27 Anion Gap 12.5 BUN 16 Creatinine 1.10 Estimated Creat Clear 97 Estimated GFR 71 Est GFR ( Amer) 85 Glucose 103 Calcium 9.1 Total Bilirubin 0.7 AST 9 L ALT 22 Alkaline Phosphatase 69 C-Reactive Protein < 0.2 Total Protein 7.6 D Albumin 4.0 Globulin 3.6 H Albumin/Globulin Ratio 1.1 Amylase 107 Lipase 143 Urine Color Urine Appearance Urine pH Ur Specific [place] Urine Protein Urine Glucose (UA) Urine Ketones Urine Blood Urine Nitrate Urine Bilirubin Urine Urobilinogen Ur Leukocyte Esterase Urine WBC Ur Squamous Epith Cells Urine Bacteria 09/29/18 16:17 WBC 12.0 H RBC 5.04 Hgb 14.7 Hct 44.0 MCV 87.3 MCH 29.2 MCHC 33.4 RDW 12.8 Plt Count 262 MPV 8.8 Neut % (Auto) 82.1 H Lymph % (Auto) 12.2 [place] % (Auto) 5.0 Eos % (Auto) 0.5 Baso % (Auto) 0.2 Neut # (Auto) 9.8 H Lymph # (Auto) 1.5 [place] # (Auto) 0.6 Eos # (Auto) 0.1 Baso # (Auto) 0.0 ESR Sodium Potassium Chloride Carbon Dioxide Anion Gap BUN Creatinine Estimated Creat Clear Estimated GFR Est GFR ( Amer) Glucose Calcium Total Bilirubin AST ALT Alkaline Phosphatase C-Reactive Protein Total Protein Albumin Globulin Albumin/Globulin Ratio Amylase Lipase Urine Color Urine Appearance Urine pH Ur Specific [place] Urine Protein Urine Glucose (UA) Urine Ketones Urine Blood Urine Nitrate Urine Bilirubin Urine Urobilinogen Ur Leukocyte Esterase Urine WBC Ur Squamous Epith Cells Urine Bacteria DS: Diagnosis - Discharge Diagnosis (1) Abdominal pain, left lower quadrant Status: Acute Problem details: Recurrent pain with changes on initial CT scan consistent with potential impending closed-loop obstruction (improved on follow- up films). Discharge Plan - Patient Discharge Instructions ACTIVITY: Continue current activity DIET: advance to your usual diet Additional Instructions: 1) complete short course of Levaquin/Flagyl for possible early infectious process 2) outpatient small bowel follow-through 3) completion of colonoscopy as per prior plans (the patient is already established with Dr. Sanchez) 4) further evaluation as per gastroenterology 5) possible capsule endoscopy (pending results of small bowel series) 6) ongoing discussion with regard to potential for partial small bowel resection Patient Instructions: Acute Abdominal Pain, DI for Abdominal Pain-Adult, DI for Acute Abdomen - Follow up Plan Follow up with: Loki Prieto MD [Staff Physician] - (after small bowel follow-through) Disposition: Home, Self-[facility] Medications: Home Medications Medication Instructions Recorded Confirmed Type Atorvastatin Calcium [Atorvastatin 40 mg PO DAILY 06/15/17 09/29/18 History 40mg Tab] Lisinopril [Lisinopril 40mg Tablet] 40 mg PO DAILY 06/15/17 09/29/18 History Nabumetone 750 mg PO DAILY 06/15/17 09/29/18 History Omeprazole [Omeprazole 40mg 40 mg PO DAILY 06/15/17 09/29/18 History Capsule] Sertraline HCl [Zoloft 100mg 150 mg PO DAILY 06/15/17 09/29/18 History tablet] Tamsulosin HCl [Flomax 0.4mg 0.4 mg PO HS 06/15/17 09/29/18 History capsule] Dextroamphetamine/Amphetamine 30 mg PO DAILY 09/30/18 09/30/18 History [Dextroamp-Amphet ER 30 mg Cap] Tramadol HCl [Tramadol 50mg 50 mg PO Q6HP PRN 09/30/18 09/30/18 History Tab] levoFLOXacin [Levaquin 500mg 500 mg PO DAILY #7 tab 09/30/18 Rx tab] metroNIDAZOLE [Flagyl 500mg 500 mg PO Q8H #21 tab 09/30/18 Rx Tablet] Prescriptions/Medication Reconciliation: New metroNIDAZOLE [Flagyl 500mg Tablet] 500 mg PO Q8H #21 tab levoFLOXacin [Levaquin 500mg tab] 500 mg PO DAILY #7 tab Continued Tamsulosin HCl [Flomax 0.4mg capsule] 0.4 mg PO HS Sertraline HCl [Zoloft 100mg tablet] 150 mg PO DAILY Omeprazole [Omeprazole 40mg Capsule] 40 mg PO DAILY Nabumetone 750 mg PO DAILY Lisinopril [Lisinopril 40mg Tablet] 40 mg PO DAILY Atorvastatin Calcium [Atorvastatin 40mg Tab] 40 mg PO DAILY Dextroamphetamine/Amphetamine [Dextroamp-Amphet ER 30 mg Cap] 30 mg PO DAILY Tramadol HCl [Tramadol 50mg Tab] 50 mg PO Q6HP PRN PRN Reason: Moderate Pain
== END 2018-09-30 10:27 | disposition home or self-care (01) ==
LOC: ER 16:03 → 2ND 16:03
PROVIDERS: ADMIT Surgery; ATTEND Surgery
CPT/HCPCS: 36415; 74021; 74022; 74176; 74177; 80048; 80053; 81001; 82150; 83690; 85025; 85651; 86140; 96374; 96375; 96376; 99284; G0378; J1956; J2405; Q9967

== ENCOUNTER → 2018-10-03 09:01 | Outpatient (CLI) | payer BC, SELFPAY ==
--- NOTE | 2018-10-03 09:06 | FL_ITS ---
FL upper GI small bowel HISTORY: Left lower quadrant pain with nausea and vomiting ITS.REASON: LLQ abdominal pain ORDERING PHYSICIAN: Loki Prieto MD PATIENT AGE: 53 years Comparison: None FINDINGS: Suit Maker exam is unremarkable showing a mild amount of retained colonic feces. Examination of the esophagus shows a small sliding hiatal hernia with nonconstricting Schatzki's ring. The stomach and duodenum have an unremarkable appearance. No mass or ulcerative lesion is evident. Examination of the small bowel is unremarkable. No obstructing lesions, mucosal abnormalities, or masses are evident. Spot views of the terminal ileum have an unremarkable appearance. FLUOROSCOPY TIME : 2 minutes and 17 seconds. IMPRESSION: 1. Small sliding hiatal hernia. 2. Otherwise negative upper GI with small bowel follow-through
== END ==
PROVIDERS: PCP Family Medicine; Visit Provider Surgery
DX: R10.32 Left lower quadrant pain (principal)
CPT/HCPCS: 74245

== ENCOUNTER → 2018-11-29 12:49 | Outpatient (CLI) | payer BC, SELFPAY ==
--- NOTE | 2018-11-29 13:12 | MR_ITS ---
PROCEDURE: MR HEAD/BRAIN WO CON CLINICAL INDICATION: OTHER AMNESIA Memory impairment, pain, left-sided occipital headache, dizziness and memory loss for COMPARISON: No exams were available for comparison TECHNIQUE: Routine multiplanar multi echo sequences are performed without gadolinium enhancement. FINDINGS: No midline shift, mass effect, intracranial hemorrhage, or hydrocephalus. No evidence of acute infarction. The cerebellopontine angles, cerebellum, and brainstem are unremarkable. The pituitary, optic chiasm, corpus callosum, and craniocervical junction have an unremarkable appearance. There are few scattered T2 white matter hyperintensities. These are nonspecific. No mastoid effusion or sinus air-fluid level. IMPRESSION: No acute intracranial findings. Nonspecific scattered T2 white matter hyperintensities which may be related to ischemic gliotic change from microvascular disease. Differential diagnosis includes migraine headache. Demyelinating process felt to be less likely due to the characteristics but not totally excluded.. Dictated by: Jaron Sharma MD 11/30/2018 07:17 Electronically signed by Jaron Sharma MD in [place] 11/30/2018 13:55
== END ==
PROVIDERS: Visit Provider Family Medicine
DX: R41.3 Other amnesia (principal)
CPT/HCPCS: 70551

== ENCOUNTER 2020-03-01 13:05 | Emergency (ER) | payer BC, SELFPAY ==
[2020-03-01 13:17] VITALS: BP 140/85; PULSE 88; RESP 19; TEMP 36.6; O2SAT 98; BMI 31.3
--- NOTE | 2020-03-01 13:22 | HMH.EDUTC ---
[facility] [place] Clinical Impression: Exposure to COVID-19 virus Disposition: Home, Self-Care Condition on Discharge: Good Instructions: Preventing the Spread of Coronavirus Discharge Instructions Additional Instructions: You have been tested for COVID19. Please isolate yourself as if you are positive until test results are received. Referrals: Gregory Garcia [Primary Care Provider] - Time of Disposition: 13:31 Medical Decision Making - David Inquiry Pt receiving controlled substance: No Vital Signs: 03/01/20 13:17 Temperature 97.8 F Temperature Source Oral Pulse Rate [Radial] 88 Respiratory Rate 19 Blood Pressure [Right Arm] 140/85 Blood Pressure Mean [Right Arm] 103 Blood Pressure Source [Right Arm] Automatic Cuff Blood Pressure Position [Right Arm] Sitting 02 Sat by Pulse Oximetry 98 Oxygen Delivery Method Room Air Orders (Tests/Meds): ORDERS Category Date Time Status Covid-19 Nasal PCR ([facility]) Routine Lab 03/01/20 13:08 Ordered [facility] HPI - General Stated complaint: covid test Time Seen by Provider: 03/01/20 13:22 Mode of Arrival: Ambulatory Source of Information: Patient Limitations: No Limitations Description of Symptoms (Recalled from Triage Doc. by RN): Covid test HEENT Symptoms (Recalled from RN notes): No Resp Symptoms (Recalled from RN notes): No Skin Symptoms (Recalled from RN notes): No MS Symptoms (Recalled from RN notes): No Functional Status (Recalled from RN notes): wnl - History of Present Illness Provider Complaint: Cough, runny nose, congestion X 1 week. No fever. Denies ear pain, denies sore throat. No loss of taste or smell. No body aches or chills. Denies vomiting, diarrhea. Exposed to COVID19 at [facility]. Onset (ago): week(s) (1) Relieving factors: none Exacerbating factors: none Associated symptoms: cough Treatments prior to arrival: none - Related Data Home Medications Medication Instructions Recorded Confirmed Atorvastatin Calcium [Lipitor 40mg 40 mg PO DAILY 06/15/17 10/09/18 Tab] Nabumetone 750 mg PO DAILY 06/15/17 10/09/18 Omeprazole [Omeprazole 40mg 40 mg PO DAILY 06/15/17 10/09/18 Capsule] Sertraline HCl [Zoloft 100mg 150 mg PO DAILY 06/15/17 10/09/18 tablet] Tamsulosin HCl [Flomax 0.4mg 0.4 mg PO HS 06/15/17 10/09/18 capsule] lisinopriL [Lisinopril 40mg Tablet] 40 mg PO DAILY 06/15/17 10/09/18 Dextroamphetamine/Amphetamine 30 mg PO DAILY 09/30/18 10/09/18 [Dextroamp-Amphet ER 30 mg Cap] Tramadol HCl [Tramadol 50mg 50 mg PO Q6HP PRN 09/30/18 10/09/18 Tab] Previous Rx's Medication Instructions Recorded levoFLOXacin [Levaquin 500mg 500 mg PO DAILY #7 tab 09/30/18 tab] metroNIDAZOLE [Flagyl 500mg 500 mg PO Q8H #21 tab 09/30/18 Tablet] Ciprofloxacin HCl [Cipro 500mg 500 mg PO BID 10 Days #20 tab 10/15/18 Tab] Oxycodone HCl/Acetaminophen 1 tab PO Q6H PRN 3 Days #10 tab 10/15/18 [Percocet 10-325 mg Tablet] Allergies Allergy/AdvReac Type Severity Reaction Status Date / Time quetiapine [From SEROQUEL] Allergy Mild Verified 10/09/18 10:41 Penicillins [PENICILLINS] Allergy Unknown Verified 10/09/18 10:41 - Worker's Comp Is this a Worker's Comp case?: No [facility] History - Hepatitis A Screen Drug use history?: No High risk sexual behaviors?: No History of sexually transmitted infection?: No Currently employed?: No Childcare worker?: No Do you have indoor plumbing?: Yes Do you have electricity?: Yes Attestation statement:: This patient has been screened for Hepatitis A risk factors. I have reviewed the patient's past medical history: Yes Medical History: Reports:: Hyperlipidemia, Hypertension Denies:: Asthma, Cancer, Congestive Heart Failure, Chronic Obstructive Pulmonary Disease (COPD), Diabetes Mellitus Type 1, Diabetes Mellitus Type 2, Internal Pacemaker Other Medical History: Denies: Anemia Laterality Cases: Bilateral: Carpal Tunnel Release Other Surgeries: Yes
[2020-03-01 13:38] VITALS: BP 140/85; PULSE 88; RESP 19; TEMP 36.6; O2SAT 98
== END 2020-03-01 13:39 | disposition home or self-care (01) ==
PROVIDERS: Emergency Provider Physician Assistant; PCP Family Medicine
DX: Z20.828 Contact with and (suspected) exposure to other viral communicable diseases (principal); I10 Essential (primary) hypertension; E78.5 Hyperlipidemia, unspecified; F17.210 Nicotine dependence, cigarettes, uncomplicated; Z88.0 Allergy status to penicillin; Z79.899 Other long term (current) drug therapy
CPT/HCPCS: 99201; U0003

== ENCOUNTER 2020-03-17 07:14 | Emergency (ER) | payer BC, SELFPAY ==
[2020-03-17 07:14] VITALS: BP 103/65; PULSE 108; RESP 16; TEMP 36.9; O2SAT 98; BMI 26.6
--- NOTE | 2020-03-17 07:24 | CT_ITS ---
PROCEDURE: CT HEAD/BRAIN WO CON CLINICAL INDICATION: poss seizure Seizure COMPARISON: No exams were available for comparison TECHNIQUE: Axial images obtained. All CT scans at the facility use one or more dose reduction, viz: automated exposure control, ma/kV adjustment per patient size (including targeted exams where dose is matched to indication, i.e. head), or iterative reconstruction technique. FINDINGS: No midline shift, mass effect, intracranial hemorrhage, hydrocephalus, or extra-axial fluid collection is evident. The calvarium has an unremarkable appearance. No mastoid effusion. No sinus air-fluid level. IMPRESSION: No acute intracranial finding Dictated by: Jaron Sharma MD 03/17/2020 08:02 Jaron Sharma MD in [place] 03/17/2020 08:02
--- NOTE | 2020-03-17 07:26 | XR_ITS ---
PROCEDURE: XR CHEST PORTABLE CLINICAL HISTORY: poss seizure COMPARISON: No exams were available for comparison FINDINGS: The cardiomediastinal silhouette and pulmonary vascularity are within normal limits. The lungs are clear without infiltrates, suspicious nodules, or pleural effusions. No acute bony abnormalities. IMPRESSION: No acute findings. Dictated by: Jaron Sharma MD 03/17/2020 08:03 Jaron Sharma MD in [place] 03/17/2020 08:03
--- NOTE | 2020-03-17 07:36 | ECG_ITS ---
APPROVED REPORT Exam: Resting ECG HR:99 bpm ECG Measurements Heart Rate 99 AXES TX 156 P 65 QRSd 96 QRS -7 QT 358 T 60 QTc 459 Conclusion Normal sinus rhythm Left atrial abnormality Borderline ECG Electronically signed by : Jaxon Almeida, 03/19/2020 19:33:43
[2020-03-17 07:40] LABS: Basophils # 0.1 K/mm3 (0-0.2); Basophils % 0.4 % (0.1-2.0); Eosinophils # 0.2 K/mm3 (0.0-0.4); Hematocrit 48.5 % (42.0-52.0); Hemoglobin 16.2 g/dL (14.1-18.0); Lymphocytes # 1.3 K/mm3 (0.7-4.5); Lymphocytes % 8.6 % (10-50); Mean Corpuscular HGB Conc 33.5 g/dL (31.8-35.4); Mean Corpuscular Hemoglobin 30.9 pg (27.0-31.2); Mean Corpuscular Volume 92.1 fl (80-94); Mean Platelet Volume 9.5 fl (7.4-10.4); Monocytes # 0.6 K/mm3 (0.1-1.0); Platelet Count 235 K/mm3 (142-424); Red Blood Count 5.26 M/mm3 (4.60-6.20); Red Cell Distribution Width 14.4 % (11.5-17.5); White Blood Count 15.2 K/mm3 (4.8-10.8)
--- NOTE | 2020-03-17 07:40 | PC.NURSE ---
Pt to rad.
[2020-03-17 07:42] LABS: MANUAL DIFFERENTIAL MANUAL DIFFERENTIAL (MANUAL DIFF)
[2020-03-17 07:43] LABS: Alanine Aminotransferase 41 U/L (12-78); Albumin Level 5.2 g/dl (3.5-5.0); Albumin/Globulin Ratio 1.6 (1.1-1.8); Alkaline Phosphatase 85 U/L (38-126); Anion Gap 21.6 mEq/L (5-15); Aspartate Amino Transferase 38 U/L (17-59); Bilirubin,Total 0.6 mg/dl (0.2-1.3); Blood Urea Nitrogen 13 mg/dl (9-20); Calcium 10.1 mg/dl (8.4-10.2); Carbon Dioxide 19 mmol/L (22.0-30.0); Chloride 101 mmol/L (98-107); Creatinine Clearance Estimated 71 mL/min (50-200); Estimated Glomerular Filt Rate 53 ml/min (>60); GFR (African American) 64 ML/MIN (>60); Globulin 3.2 g/dL (1.3-3.2); Glucose 177 mg/dl (74-100); Potassium 3.6 mmoL/L (3.5-5.1); Sodium 138 mmol/L (136-145); Total Protein,Serum 8.4 g/dl (6.3-8.2)
--- NOTE | 2020-03-17 08:04 | HMH.EDGENADL ---
ED Disposition Clinical Impression: New onset seizure Disposition: Home, Self-Care Condition on Discharge: Good Instructions: DI for Seizure (Not Epilepsy/Seizure Disorder) Additional Instructions: Do not take tramadol until further instructed by your primary care doctor or Dr. Juan. Additional instructions for SEIZURE: NO DRIVING, BIKE RIDING, SWIMMING, TUB BATHING, LADDERS UNTIL CLEARED BY DOCTOR. RETURN IF SEIZURE RECURS. NO ALCOHOL OR STREET DRUGS. See your physician as soon as possible for follow-up. See Dr. Steen for neurology evaluation. Return to the emergency department if seizure recurs. Referrals: Gregory Garcia [Primary Care Provider] - - Critical Care Critical Care Time: No Attestation: On 03/17/20, the high probability of a clinically significant, sudden or life threatening deterioration of the following system(s) required my full and direct attention, intervention and personal management. The time I documented below is in addition to time spent performing reported procedures but includes the following listed in this critical care notation. Medical Decision Making - Medical Records Medical records reviewed: Yes: I reviewed the patient's medical records. MR Comment: Reviewed brain MRI from 2019, reason for exam states amnesia. See result below. Also noted the patient had 2 scheduled appointments with neurology at Dr. Juan's office 10/31/2019 and 03/04/2020 and failed both appointments. Patient and ex- confirm this. - David Inquiry Pt receiving controlled substance: No Vital Signs: 03/17/20 07:14 03/17/20 08:09 03/17/20 08:51 Temperature 98.5 F Temperature Source Oral Pulse Rate [Right] 108 H 92 H 98 H Respiratory Rate 16 Blood Pressure [Right Arm] 103/65 L 141/81 H 123/74 Blood Pressure Mean [Right Arm] 77 101 90 Blood Pressure Source [Right Arm] Automatic Cuff Automatic Cuff Automatic Cuff Blood Pressure Position [Right Arm] Sitting Sitting Sitting 02 Sat by Pulse Oximetry 98 97 95 Oxygen Delivery Method Room Air Room Air Room Air 03/17/20 10:30 Temperature Temperature Source Pulse Rate [Right] 96 H Respiratory Rate 20 Blood Pressure [Right Arm] 150/100 H Blood Pressure Mean [Right Arm] 116 Blood Pressure Source [Right Arm] Automatic Cuff Blood Pressure Position [Right Arm] Supine 02 Sat by Pulse Oximetry 97 Oxygen Delivery Method Room Air - Lab Data Lab results reviewed: Yes: I reviewed the patient's lab results. Lab Results 03/17/20 07:18: WBC 15.2 H, RBC 5.26, Hgb 16.2, Hct 48.5, MCV 92.1, MCH 30.9, MCHC 33.5, RDW 14.4, Plt Count 235, MPV 9.5, Neut % (Auto) 86.0 H, Lymph % (Auto) 8.6 L, [place] % (Auto) 4.0, Eos % (Auto) 1.0, Baso % (Auto) 0.4, Neut # (Auto) 13.0 H, Lymph # (Auto) 1.3, [place] # (Auto) 0.6, Eos # (Auto) 0.2, Baso # (Auto) 0.1, Total Counted 100, Neutrophils % (Manual) 82 H, Lymphocytes % (Manual) 13, Monocytes % (Manual) 3, Eosinophils % (Manual) 2, Platelet Estimate Normal, RBC Morphology Normal 03/17/20 07:18: Sodium 138, Potassium 3.6, Chloride 101, Carbon Dioxide 19 L, Anion Gap 21.6 H, BUN 13, Creatinine 1.40 H, Estimated Creat Clear 71, Estimated GFR 53 L, Est GFR ( Amer) 64, Glucose 177 H, Calcium 10.1, Total Bilirubin 0.6, AST 38, ALT 41, Alkaline Phosphatase 85, Troponin I < 0.01, Total Protein 8.4 H, Albumin 5.2 H, Globulin 3.2, Albumin/Globulin Ratio 1.6 03/17/20 07:18: Plasma/Serum Alcohol < 10 03/17/20 07:18: SARS-CoV-2 IgG Ab (Rapid) Negative, SARS-CoV-2 IgM Ab (Rapid) Negative 03/17/20 10:00: Urine Opiates Screen Negative, Urine Methadone Screen Negative, Ur Barbituates Screen Negative, Ur Phencyclidine Scrn Negative, Ur Amphetamines Screen Positive H, U Benzodiazepines Scrn Negative, Urine Cocaine Screen Negative, U Marijuana (THC) Screen Negative Result diagrams: 03/17/20 07:18 03/17/20 07:18 Orders (Tests/Meds): ED MEDICATIONS Discontinued Medications Generic Name Dose Route Start Last Admin Trade Name Kit Velez
[2020-03-17 08:09] VITALS: BP 141/81; PULSE 92; O2SAT 97
[2020-03-17 08:10] LABS: Troponin I < 0.01 ng/ml (0.00-0.034)
[2020-03-17 08:26] LABS: Ethyl Alcohol < 10 mg/dl (0-10)
[2020-03-17 08:27] LABS: Eosinophils % 2 % (0-3); Lymphocytes % 13 % (10-50); Monocytes % 3 % (2-9); Neutrophils % 82 % (42-76); Platelet Estimate Normal; RBC Morphology Normal; Total Cells Counted 100
[2020-03-17 08:47] LABS: Coronavirus 19 IgG Antibody Negative (Negative); Coronavirus 19 IgM Antibody Negative (Negative)
[2020-03-17 08:51] VITALS: BP 123/74; PULSE 98; O2SAT 95
[2020-03-17 10:18] LABS: Amphetamine/Metha Screen,Urine Positive ng/ml (<1000)
[2020-03-17 10:19] LABS: Barbiturates Screen,Urine Negative ng/ml (<200); Benzodiazepines Screen,Urine Negative ng/ml (<200)
[2020-03-17 10:20] LABS: Cannabinoid Screen,Urine Negative ng/ml (<50)
[2020-03-17 10:21] LABS: Cocaine Screen,Urine Negative ng/ml (<300); Methadone Screen,Urine Negative ng/ml (<300)
[2020-03-17 10:22] LABS: Opiate Screen,Urine Negative ng/ml (<300)
[2020-03-17 10:23] LABS: Phencyclidine Screen,Urine Negative ng/ml (<25)
[2020-03-17 10:30] VITALS: BP 150/100; PULSE 96; RESP 20; O2SAT 97
[2020-03-17 11:11] VITALS: BP 163/99; PULSE 93; RESP 16; TEMP 36.9; O2SAT 97
[2020-03-17 11:25] LABS: Troponin I 0.02 ng/ml (0.00-0.034)
[2020-03-18 11:20] LABS: Rapid Plasma Reagin Ab Titer Non Reactive (NonRea<1:1)
== END 2020-03-17 11:13 | disposition home or self-care (01) ==
PROVIDERS: Emergency Medicine; Emergency Provider Emergency Medicine; PCP Family Medicine
DX: G40.909 Epilepsy, unspecified, not intractable, without status epilepticus (principal); E78.5 Hyperlipidemia, unspecified; I10 Essential (primary) hypertension; Z88.0 Allergy status to penicillin; F17.210 Nicotine dependence, cigarettes, uncomplicated; Z79.899 Other long term (current) drug therapy
CPT/HCPCS: 36415; 70450; 71045; 80053; 80305; 84484; 85007; 85025; 86328; 86592; 86618; 93005; 96365; 99283

== ENCOUNTER 2020-04-04 10:08 | Emergency (ER) | payer BC, SELFPAY ==
[2020-04-04 10:09] VITALS: BP 162/100; PULSE 91; RESP 16; TEMP 36.7; O2SAT 98; BMI 30.7
--- NOTE | 2020-04-04 10:31 | HMH.EDSKAF ---
ED Disposition Clinical Impression: Rash Disposition: Home, Self-Care Condition on Discharge: Good Instructions: DI for Rash Prescriptions: methylPREDNISolone [Medrol] 4 mg PO DIRECTED #21 pack Prescription Printed Referrals: Madeline Veras MD [Referring] - - Critical Care Critical Care Time: No Attestation: On 04/04/20, the high probability of a clinically significant, sudden or life threatening deterioration of the following system(s) required my full and direct attention, intervention and personal management. The time I documented below is in addition to time spent performing reported procedures but includes the following listed in this critical care notation. Medical Decision Making - Medical Records Medical records reviewed: Yes: I reviewed the patient's medical records. - David Inquiry Pt receiving controlled substance: No Vital Signs: 04/04/20 10:09 Temperature 98.1 F Temperature Source Oral Pulse Rate [Radial] 91 H Respiratory Rate 16 Blood Pressure [Right Arm] 162/100 H Blood Pressure Mean [Right Arm] 120 Blood Pressure Position [Right Arm] Sitting 02 Sat by Pulse Oximetry 98 Oxygen Delivery Method Room Air Medical Decision Narrative: Uncertain as to the etiology of this rash, though it does not appear consistent with tickborne illness, ITP, TTP, biliary obstruction related pruritus. This appears most consistent with a psoriasis/eczema type picture. Will discharge with Medrol Dosepak and advised follow-up with dermatology. Skin/Abscess/FB HPI - General Chief complaint: Skin/Abscess/Foreign Body Stated complaint: Rash all over body Time Seen by Provider: 04/04/20 10:31 Mode of Arrival: Ambulatory Limitations: No Limitations Description of Symptoms (Recalled from ER Triage Doc. by RN): to ed per pvt car with c/o itching rash x 2 weeks progressively getting worse. pt states hx of first time seizure 2 weeks ago and rash developed afterwards. pt also c/o abscess to lt groin area x 1 month given antibiotics, finished course with no change in abscess. pt denies new meds, soaps, detergent. pt denies fever, chills, nausea, vomiting - History of Present Illness HPI narrative: This is a 54-year-old male with a past medical history significant for hypertension, hyperlipidemia who presents to the emergency department for evaluation of pruritic rash all over his body that he has had for about 2 weeks. He denies any abdominal pain, fever, recent insect bites. No one else in the home has the rash. No new exposure to materials, drugs, detergents, plants. He has never had an allergic reaction like this before. He denies any history of gallbladder or liver pathology. No known exacerbating or alleviating factors. - Related Data Home Medications Medication Instructions Recorded Confirmed Atorvastatin Calcium [Lipitor 40mg 40 mg PO DAILY 06/15/17 03/17/20 Tab] Nabumetone 750 mg PO DAILY 06/15/17 10/09/18 Omeprazole [Omeprazole 40mg 40 mg PO DAILY 06/15/17 10/09/18 Capsule] Sertraline HCl [Zoloft 100mg 150 mg PO DAILY 06/15/17 03/17/20 tablet] Tamsulosin HCl [Flomax 0.4mg 0.4 mg PO HS 06/15/17 03/17/20 capsule] lisinopriL [Lisinopril 40mg Tablet] 40 mg PO DAILY 06/15/17 03/17/20 Dextroamphetamine/Amphetamine 30 mg PO DAILY 09/30/18 03/17/20 [Dextroamp-Amphet ER 30 mg Cap] Tramadol HCl [Tramadol 50mg 50 mg PO Q6HP PRN 09/30/18 03/17/20 Tab] Ezetimibe 10 mg PO DAILY 03/17/20 03/17/20 Sulfamethoxazole/Trimethoprim 1 each PO BID 03/17/20 03/17/20 [Sulfamethoxazole-Tmp Ds Tablet] hydrOXYzine HCL [Hydroxyzine HCl] 25 mg PO TID 03/17/20 03/17/20 Previous Rx's Medication Instructions Recorded Oxycodone HCl/Acetaminophen 1 tab PO Q6H PRN 3 Days #10 tab 10/15/18 [Percocet 10-325 mg Tablet] methylPREDNISolone [Medrol] 4 mg PO DIRECTED #21 pack 04/04/20 Allergies Allergy/AdvReac Type Severity Reaction Status Date / Time quetiapine [From SE
[2020-04-04 10:48] VITALS: BP 142/78; PULSE 78; RESP 16; TEMP 36.6; O2SAT 98
== END 2020-04-04 10:50 | disposition home or self-care (01) ==
PROVIDERS: Emergency Provider Emergency Medicine; PCP Family Medicine
DX: R21 Rash and other nonspecific skin eruption (principal); I10 Essential (primary) hypertension; E78.5 Hyperlipidemia, unspecified; Z79.899 Other long term (current) drug therapy; F17.210 Nicotine dependence, cigarettes, uncomplicated; Z88.0 Allergy status to penicillin
CPT/HCPCS: 99281

== ENCOUNTER 2020-06-04 20:13 | Emergency (ER) | payer BC, SELFPAY ==
--- NOTE | 2020-06-04 20:07 | ECG_ITS ---
APPROVED REPORT Exam: Resting ECG HR:78 bpm ECG Measurements Heart Rate 78 AXES MO 166 P 49 QRSd 82 QRS -14 QT 366 T 46 QTc 417 Conclusion Normal sinus rhythm Possible Left atrial enlargement Borderline ECG Electronically signed by : Jaxon Almeida, 06/05/2020 15:07:52
[2020-06-04 20:13] VITALS: BP 178/100; PULSE 81; RESP 18; TEMP 36.7; O2SAT 98; BMI 30.4
[2020-06-04 20:30] VITALS: BP 141/92; PULSE 86; RESP 21; O2SAT 96
--- NOTE | 2020-06-04 20:33 | XR_ITS ---
PROCEDURE: XR CHEST 2V CLINICAL HISTORY: chest pain COMPARISON: CR XR CHEST PORTABLE from 03/17/2020 FINDINGS: The cardiomediastinal silhouette and pulmonary vascularity are within normal limits. Minor subsegmental atelectasis in the left lower zone. No lobar consolidation, pleural effusions or pneumothorax. Degenerative changes of the visualized thoracic spine. IMPRESSION: Minor subsegmental atelectasis in the left lower zone. No focal consolidation or pleural effusions. Dictated by: Rebecca Valdivia 06/05/2020 10:12 Rebecca Valdivia in [place] 06/05/2020 10:12
[2020-06-04 20:34] LABS: Basophils # 0.1 K/mm3 (0-0.2); Basophils % 0.8 % (0.1-2.0); Eosinophils # 0.2 K/mm3 (0.0-0.4); Eosinophils % 2.1 % (0.1-12.0); Hematocrit 42.9 % (42.0-52.0); Hemoglobin 14.5 g/dL (14.1-18.0); Lymphocytes # 1.6 K/mm3 (0.7-4.5); Lymphocytes % 14.3 % (10-50); Mean Corpuscular HGB Conc 33.9 g/dL (31.8-35.4); Mean Corpuscular Hemoglobin 30.6 pg (27.0-31.2); Mean Corpuscular Volume 90.1 fl (80-94); Mean Platelet Volume 9.4 fl (7.4-10.4); Monocytes # 0.4 K/mm3 (0.1-1.0); Monocytes % 3.5 % (1.7-9.3); Neutrophils % 79.3 % (37.0-80.0); Platelet Count 246 K/mm3 (142-424); Red Blood Count 4.76 M/mm3 (4.60-6.20); Red Cell Distribution Width 13.9 % (11.5-17.5); White Blood Count 11.3 K/mm3 (4.8-10.8)
[2020-06-04 20:39] LABS: Chloride 107 mmol/L (98-107); Potassium 4.1 mmoL/L (3.5-5.1); Sodium 140 mmol/L (136-145)
[2020-06-04 20:41] LABS: Alanine Aminotransferase 24 U/L (12-78); Aspartate Amino Transferase 32 U/L (17-59); Bilirubin,Unconjugated 0.5 mg/dL (0.0-1.1); Blood Urea Nitrogen 26 mg/dl (9-20); Creatinine Clearance Estimated 111 mL/min (50-200); Estimated Glomerular Filt Rate 78 ml/min (>60); GFR (African American) 95 ML/MIN (>60)
[2020-06-04 20:42] LABS: Albumin Level 5.2 g/dl (3.5-5.0); Alkaline Phosphatase 73 U/L (38-126); Anion Gap 10.1 mEq/L (5-15); Bilirubin,Direct 0.2 mg/dl (0.0-0.4); Bilirubin,Indirect 0.5 mg/dL (0.0-0.9); Bilirubin,Total 0.7 mg/dl (0.2-1.3); Carbon Dioxide 27 mmol/L (22.0-30.0); Glucose 87 mg/dl (74-100); Total Protein,Serum 8.2 g/dl (6.3-8.2)
[2020-06-04 20:45] VITALS: BP 128/79; PULSE 74; RESP 18; O2SAT 96
[2020-06-04 20:47] LABS: C-Reactive Protein 3.8 mg/L (0-4)
--- NOTE | 2020-06-04 21:04 | HMH.EDCP ---
ED Disposition Clinical Impression: Tobacco use Chest pain Qualifiers: Chest pain type: precordial pain Qualified Code(s): R07.2 - Precordial pain HTN (hypertension) Qualifiers: Hypertension type: essential hypertension Qualified Code(s): I10 - Essential (primary) hypertension Disposition: Left Against Medical Advice Condition on Discharge: Good Instructions: DI for Chest Pain Additional Instructions: see pcp and card and return to ed if any sx Referrals: Gregory Garcia [Primary Care Provider] - - Critical Care Critical Care Time: No Attestation: On 06/04/20, the high probability of a clinically significant, sudden or life threatening deterioration of the following system(s) required my full and direct attention, intervention and personal management. The time I documented below is in addition to time spent performing reported procedures but includes the following listed in this critical care notation. Medical Decision Making - Medical Records Medical records reviewed: Yes: I reviewed the patient's medical records. - David Inquiry Pt receiving controlled substance: No Vital Signs: 06/04/20 20:13 06/04/20 20:30 06/04/20 20:45 Temperature 98.0 F Temperature Source Oral Pulse Rate 86 74 Pulse Rate [Apical] 81 Respiratory Rate 18 21 18 Blood Pressure 141/92 H 128/79 Blood Pressure [Right Arm] 178/100 H Blood Pressure Mean [Right Arm] 126 Blood Pressure Source [Right Arm] Manual Cuff/ Auscultation Blood Pressure Position [Right Arm] Sitting 02 Sat by Pulse Oximetry 98 96 96 Oxygen Delivery Method Room Air - Lab Data Lab results reviewed: Yes: I reviewed the patient's lab results. Lab Results 06/04/20 20:14: WBC 11.3 H, RBC 4.76, Hgb 14.5, Hct 42.9, MCV 90.1, MCH 30.6, MCHC 33.9, RDW 13.9, Plt Count 246, MPV 9.4, Neut % (Auto) 79.3, Lymph % (Auto) 14.3, [place] % (Auto) 3.5, Eos % (Auto) 2.1, Baso % (Auto) 0.8, Neut # (Auto) 9.0 H, Lymph # (Auto) 1.6, [place] # (Auto) 0.4, Eos # (Auto) 0.2, Baso # (Auto) 0.1 06/04/20 20:14: Sodium 140, Potassium 4.1, Chloride 107, Carbon Dioxide 27, Anion Gap 10.1, BUN 26 H, Creatinine 1.00, Estimated Creat Clear 111, Estimated GFR 78, Est GFR ( Amer) 95, Glucose 87, Calcium 10.0, Total Bilirubin 0.7, Direct Bilirubin 0.2, Conjugated Bilirubin 0.0, Indirect Bilirubin 0.5, Unconjugated Bilirubin 0.5, AST 32, ALT 24, Alkaline Phosphatase 73, C-Reactive Protein 3.8, Total Protein 8.2, Albumin 5.2 H Result diagrams: 06/04/20 20:14 06/04/20 20:14 Orders (Tests/Meds): ED MEDICATIONS Generic Name Dose Route Start Last Admin Trade Name Freq PRN Reason Stop Dose Admin Sodium Chloride 1,000 mls @ 999 mls/hr 06/04/20 20:30 06/04/20 20:29 Sod Chlor 0.9% 1000ml Bag IV 06/04/20 21:30 999 mls/hr .Q1H1M RADHA Administration Discontinued Medications Generic Name Dose Route Start Last Admin Trade Name Freq PRN Reason Stop Dose Admin Aspirin 324 mg 06/04/20 20:25 06/04/20 20:13 Aspirin 81mg Chewable Tablet PO 06/04/20 20:26 324 mg ONCE ONE Administration Nitroglycerin 1 gm 06/04/20 20:25 06/04/20 20:28 Nitroglycerin 1 Gm Ointment TD 06/04/20 20:26 1 gm ONCE ONE Administration Nitroglycerin 0.4 mg 06/04/20 20:25 06/04/20 20:15 Nitroglycerin 0.4mg Sl Tablet SL 06/04/20 20:26 0.4 mg ONCE ONE Administration ORDERS Category Date Time Status Chest XR 2 view (NOT portable) [XR chest 2V] Stat Exams 06/04/20 20:33 Taken Basic Metabolic Panel Stat Lab 06/04/20 20:14 Results CRP [C-Reactive Protein] Stat Lab 06/04/20 20:14 Results Covid-19 Nasal PCR ([facility]) Routine Lab 06/04/20 20:48 Received Erythrocyte Sedimentation Rate Stat Lab 06/04/20 20:14 Received Liver Panel Stat Lab 06/04/20 20:14 Results Troponin I Q3H Lab 06/04/20 23:30 Ordered Troponin I Q3H Lab 06/05/20 02:30 Ordered Troponin I Stat Lab 06/04/20 20:14 Results - Radiology Data #1 Image(s): Chest Image Reviewed: Yes I
[2020-06-04 21:14] LABS: Troponin I < 0.01 ng/ml (0.00-0.034)
[2020-06-04 21:19] LABS: Erythrocyte Sedimentation Rate 10 mm/hr (0-20)
[2020-06-04 21:29] VITALS: BP 139/95; PULSE 73; RESP 14; TEMP 36.6; O2SAT 97
== END 2020-06-04 21:33 | disposition left against medical advice (07) ==
PROVIDERS: Emergency Provider Emergency Medicine; PCP Family Medicine
DX: R07.2 Precordial pain (principal); I10 Essential (primary) hypertension; E78.5 Hyperlipidemia, unspecified; Z88.0 Allergy status to penicillin; F17.210 Nicotine dependence, cigarettes, uncomplicated; Z79.899 Other long term (current) drug therapy
CPT/HCPCS: 71046; 80048; 80076; 84484; 85025; 85651; 86140; 93005; 96365; 99283; U0003

== ENCOUNTER → 2020-07-28 09:59 | Outpatient (CLI) | payer BC, SELFPAY ==
--- NOTE | 2020-07-28 10:22 | MR_ITS ---
PROCEDURE: MR HEAD/BRAIN WO/W CON CLINICAL INDICATION: new onset seizure Seizures started in March. COMPARISON: MR MR HEAD/BRAIN WO CON from 11/29/[address] HEAD/BRAIN WO CON from 03/17/2020 TECHNIQUE: Routine multiplanar multi echo sequences are performed without and with gadolinium enhancement. FINDINGS: No midline shift, mass effect, intracranial hemorrhage, or hydrocephalus is evident. There are few small T2 white matter hyperintensities not significantly changed. No underlying enhancing lesions apparent. The cerebellopontine angles, cerebellum, and brainstem have an unremarkable appearance. The pituitary, optic chiasm, corpus callosum, and craniocervical junction have an unremarkable appearance. No mastoid effusion or sinus air-fluid level. There is minimal mucosal thickening of the ethmoid sinus on the left. IMPRESSION: The centrally negative MRI of the brain without and with contrast. No significant change compared to 11/29/2018 with no acute finding Dictated by: Jaron Sharma MD 07/29/2020 11:28 Jaron Sharma MD in [place] 07/29/2020 11:28
== END ==
PROVIDERS: PCP Family Medicine; Visit Provider Specialist
DX: R56.9 Unspecified convulsions (principal); G47.33 Obstructive sleep apnea (adult) (pediatric); G57.00 Lesion of sciatic nerve, unspecified lower limb; I10 Essential (primary) hypertension; Z68.31 Body mass index [BMI] 31.0-31.9, adult; Z72.0 Tobacco use
CPT/HCPCS: 70553; 95819; A9576

== ENCOUNTER → 2020-08-25 09:53 | Outpatient (CLI) | payer BC, SELFPAY | PROVIDERS: Visit Provider Specialist | DX: Z01.812 Encounter for preprocedural laboratory examination (principal); Z11.52 Encounter for screening for COVID-19 | CPT/HCPCS: U0003 ==

== ENCOUNTER → 2020-10-07 15:04 | Outpatient (CLI) | payer BC, SELFPAY | PROVIDERS: Visit Provider Specialist | DX: Z11.52 Encounter for screening for COVID-19 (principal) | CPT/HCPCS: U0003 ==

== ENCOUNTER → 2020-10-08 20:15 | Outpatient (CLI) | payer BC, SELFPAY | PROVIDERS: PCP Family Medicine; Visit Provider Specialist | DX: G47.33 Obstructive sleep apnea (adult) (pediatric) (principal) | CPT/HCPCS: 95810 ==

== ENCOUNTER 2021-01-10 13:49 | Emergency (ER) | payer BC, SELFPAY ==
[2021-01-10 15:46] VITALS: BP 0/0; PULSE 0; RESP 0; TEMP -17.7; TEMP 0
== END 2021-01-10 15:48 | disposition left against medical advice (07) ==
PROVIDERS: Emergency Provider Nurse Practitioner Family; PCP Family Medicine
DX: Z53.21 Procedure and treatment not carried out due to patient leaving prior to being seen by health care provider (principal)
CPT/HCPCS: 99202; G0463

== ENCOUNTER → 2021-01-27 13:26 | Outpatient (CLI) | payer BC, SELFPAY | PROVIDERS: PCP Family Medicine; Visit Provider Nurse Practitioner | DX: U07.1 COVID-19 (principal) | CPT/HCPCS: C9803; U0003; U0005 ==

== ENCOUNTER → 2021-02-15 15:55 | Outpatient (CLI) | payer BC, SELFPAY | PROVIDERS: PCP Family Medicine; Visit Provider Nurse Practitioner | DX: Z20.822 Contact with and (suspected) exposure to COVID-19 (principal) | CPT/HCPCS: C9803; U0003; U0005 ==

== ENCOUNTER 2021-08-16 20:25 | Emergency (ER) | payer BC, SELFPAY ==
[2021-08-16] VITALS (7 sets, daily range): BP systolic 86–108; BP diastolic 52–74; PULSE 65–101; RESP 23–24; TEMP 38.3; O2SAT 79–99; BMI 30.4
--- NOTE | 2021-08-16 20:50 | ECG_ITS ---
APPROVED REPORT Exam: Resting ECG HR:100 bpm ECG Measurements Heart Rate 100 AXES MA 155 P 56 QRSd 93 QRS 16 QT 344 T 61 QTc 401 Conclusion SINUS TACHYCARDIA POSSIBLE RIGHT ATRIAL ENLARGEMENT [0.25mV P-WAVE] POSSIBLE LEFT ATRIAL ENLARGEMENT [-0.1mV P-WAVE IN V1/V2] POSSIBLE INFERIOR MYOCARDIAL INFARCTION , PROBABLY OLD [30 ms Q WAVE IN II/aVF] ABNORMAL RHYTHM ECG UNCONFIRMED REPORT Electronically signed by : Jaxon Almeida MD 08/17/2021 22:17:13
[2021-08-16 21:17] LABS: POC Glucose,Bedside 186 (70-110)
[2021-08-16 21:28] LABS: ABG HCO3 14.3 mmhg (22.0-26.0); ABG Oxygen Saturation 98 % (90-100); ABG PCO2 25.4 mmhg (35.0-45.0); ABG PH 7.37 mmol/L (7.35-7.45); ABG PO2 101.8 mmhg (80-100); ABG TCO2 15.1 mmhg (23-27); Allen's Test Non Applicable; Oxygen 2LPM %; Source Right Brachial
[2021-08-16 21:35] LABS: Coronavirus 19, PCR Not Detected (NotDetected); Influenza A, PCR Not Detected (NotDetected); Influenza B, PCR Not Detected (NotDetected)
[2021-08-16 21:35] LABS: Basophils # 0.1 K/mm3 (0-0.2); Basophils % 0.3 % (0.1-2.0); Eosinophils # 0.1 K/mm3 (0.0-0.4); Eosinophils % 0.5 % (0.1-12.0); Hematocrit 41.7 % (42.0-52.0); Hemoglobin 14.8 g/dL (14.1-18.0); Lymphocytes # 0.9 K/mm3 (0.7-4.5); Lymphocytes % 5.1 % (10-50); Mean Corpuscular HGB Conc 35.5 g/dL (31.8-35.4); Mean Corpuscular Hemoglobin 30.6 pg (27.0-31.2); Mean Corpuscular Volume 86.3 fl (80-94); Mean Platelet Volume 10.1 fl (7.4-10.4); Microscopic, Urine URINE MICROSCOPIC (MICROSCOPIC); Monocytes % 5.5 % (1.7-9.3); Neutrophils # 16.4 K/mm3 (1.8-7.8); Neutrophils % 88.6 % (37.0-80.0); Platelet Count 299 K/mm3 (142-424); Red Blood Count 4.83 M/mm3 (4.60-6.20); Red Cell Distribution Width 13.2 % (11.5-17.5); White Blood Count 18.5 K/mm3 (4.8-10.8)
[2021-08-16 21:39] LABS: MANUAL DIFFERENTIAL MANUAL DIFFERENTIAL (MANUAL DIFF)
[2021-08-16 21:40] LABS: Alanine Aminotransferase 41 U/L (12-78); Albumin Level 4.9 g/dl (3.5-5.0); Albumin/Globulin Ratio 1.3 (1.1-1.8); Alkaline Phosphatase 272 U/L (38-126); Anion Gap 32.4 mEq/L (5-15); Aspartate Amino Transferase 53 U/L (17-59); Bilirubin,Total 0.8 mg/dl (0.2-1.3); Blood Urea Nitrogen 77 mg/dl (9-20); Calcium 10.3 mg/dl (8.4-10.2); Carbon Dioxide 15 mmol/L (22.0-30.0); Chloride 89 mmol/L (98-107); Creatinine Clearance Estimated 15 mL/min (50-200); Estimated Glomerular Filt Rate 8 ml/min (>60); GFR (African American) 10 ML/MIN (>60); Globulin 3.7 g/dL (1.3-3.2); Glucose 208 mg/dl (74-100); Magnesium 2.5 mg/dl (1.6-2.3); Potassium 4.4 mmoL/L (3.5-5.1); Sodium 132 mmol/L (136-145); Total Protein,Serum 8.6 g/dl (6.3-8.2)
--- NOTE | 2021-08-16 21:46 | XR_ITS ---
PROCEDURE INFORMATION: Exam: XR Chest Exam date and time: 08/16/2021 9:50 PM Age: 56 years old Clinical indication: Cough and shortness of breath; Patient HX: Cough, SOB; Additional info: Cough, SOA TECHNIQUE: Imaging protocol: XR of the chest. Views: 1 view. COMPARISON: CR XR CHEST 2V 06/04/2020 8:28 PM FINDINGS: Lungs: Unremarkable. No consolidation. Pleural spaces: Unremarkable. No pleural effusion. No pneumothorax. Heart/Mediastinum: Unremarkable. No cardiomegaly. Bones/joints: Mild rotoscoliosis. Osteophytosis and eburnation of the acromioclavicular articulating surfaces. IMPRESSION: No evidence for acute cardiopulmonary process.
--- NOTE | 2021-08-16 21:46 | HMH.EDNVD ---
ED Disposition Clinical Impression: Gastric outflow obstruction, GRETTA (acute kidney injury), Abnormal CT of the abdomen Disposition: Xfer Short-Term Hosp Condition on Discharge: Serious Instructions: DI for Acute Abdominal Pain Referrals: Gregory Garcia [Primary Care Provider] - - Critical Care Critical Care Time: Yes Attestation: On 08/16/21, the high probability of a clinically significant, sudden or life threatening deterioration of the following system(s) required my full and direct attention, intervention and personal management. The time I documented below is in addition to time spent performing reported procedures but includes the following listed in this critical care notation. Total Critical Care Time: 60 Vital system(s) involved:: Metabolic Failure My critical care processes included: Assessment & monitoring of V/S, Initial and Re-exams, Data Review/Interpretation, Coordinating Care, Medication Orders and management, Documentation Medical Decision Making - Medical Records Medical records reviewed: Yes: I reviewed the patient's medical records. - David Inquiry Pt receiving controlled substance: No Vital Signs: 08/16/21 20:27 08/16/21 20:45 08/16/21 21:00 Temperature 101.0 F H Temperature Source Rectal Pulse Rate 101 H 65 Pulse Rate [Right] 98 H Respiratory Rate 23 24 Blood Pressure 94/61 L 99/62 L Blood Pressure [Right Arm] 86/52 L Blood Pressure Mean [Right Arm] 63 Blood Pressure Source Automatic Cuff Automatic Cuff Blood Pressure Source [Right Arm] Manual Cuff/ Auscultation 02 Sat by Pulse Oximetry 79 L 96 96 Oxygen Delivery Method Room Air Nasal Cannula Room Air 08/16/21 21:30 08/16/21 22:00 08/16/21 23:00 Temperature Temperature Source Pulse Rate 90 94 H 81 Pulse Rate [Right] Respiratory Rate Blood Pressure 101/65 L 108/74 L 97/58 L Blood Pressure [Right Arm] Blood Pressure Mean [Right Arm] Blood Pressure Source Automatic Cuff Automatic Cuff Blood Pressure Source [Right Arm] 02 Sat by Pulse Oximetry 99 99 97 Oxygen Delivery Method Room Air Room Air Room Air 08/16/21 23:30 08/17/21 00:00 08/17/21 00:30 Temperature 99.8 F H Temperature Source Oral Pulse Rate 87 84 89 Pulse Rate [Right] Respiratory Rate 19 Blood Pressure 100/56 L 107/65 L 109/72 L Blood Pressure [Right Arm] Blood Pressure Mean [Right Arm] Blood Pressure Source Blood Pressure Source [Right Arm] 02 Sat by Pulse Oximetry 99 99 99 Oxygen Delivery Method Room Air 08/17/21 01:00 Temperature Temperature Source Pulse Rate 88 Pulse Rate [Right] Respiratory Rate Blood Pressure 112/74 Blood Pressure [Right Arm] Blood Pressure Mean [Right Arm] Blood Pressure Source Blood Pressure Source [Right Arm] 02 Sat by Pulse Oximetry 98 Oxygen Delivery Method - Lab Data Lab results reviewed: Yes: I reviewed the patient's lab results. Lab Results 08/16/21 19:00: SARS-CoV-2 (PCR) Not detected, Influenza A Untype (PCR) Not detected, Influenza Type B (PCR) Not detected 08/16/21 21:00: ESR 16 08/16/21 21:00: Troponin I < 0.01, C-Reactive Protein 411.0 H, Procalcitonin 12.2 H, TSH 0.89, Thyroxine (T4) 4.8 L 08/16/21 21:00: WBC 18.5 H, RBC 4.83, Hgb 14.8, Hct 41.7 L, MCV 86.3, MCH 30.6, MCHC 35.5 H, RDW 13.2, Plt Count 299, MPV 10.1, Neut % (Auto) 88.6 H, Lymph % (Auto) 5.1 L, [place] % (Auto) 5.5, Eos % (Auto) 0.5, Baso % (Auto) 0.3, Neut # (Auto) 16.4 H, Lymph # (Auto) 0.9, [place] # (Auto) 1.0, Eos # (Auto) 0.1, Baso # (Auto) 0.1, Total Counted 100, Neutrophils % (Manual) 81 H, Lymphocytes % (Manual) 8 L, Monocytes % (Manual) 11 H, Platelet Estimate Normal, Hypochromasia 1+ 08/16/21 21:00: Sodium 132 L, Potassium 4.4, Chloride 89 L, Carbon Dioxide 15 L, Anion Gap 32.4 H, BUN 77 H, Creatinine 7.20 H, Estimated Creat Clear 15, Estimated GFR 8 L*, Est GFR ( Amer) 10 L*, Glucose 208 H, Calcium 10.3 H, Magnesium 2.5 H, Total Bilirubin 0.8, AST 53, ALT 41, Alkaline Phosp
--- NOTE | 2021-08-16 21:47 | PC.NURSE ---
notified of critical creatinine 7.20 lactic 5.0
[2021-08-16 21:49] LABS: NT Pro Brain Natriuretic Pep. 658 pg/mL (0-125)
[2021-08-16 21:50] LABS: Amphetamine/Metha Screen,Urine Positive ng/ml (<1000)
--- NOTE | 2021-08-16 21:50 | CT_ITS ---
PROCEDURE INFORMATION: Exam: CT Abdomen And Pelvis Without Contrast Exam date and time: 08/16/2021 9:59 PM Age: 56 years old Clinical indication: Abdominal tenderness; Patient HX: Abd pain TECHNIQUE: Imaging protocol: Computed tomography of the abdomen and pelvis without contrast. Radiation optimization: All CT scans at this facility use at least one of these dose optimization techniques: automated exposure control; mA and/or kV adjustment per patient size (includes targeted exams where dose is matched to clinical indication); or iterative reconstruction. COMPARISON: CT ABDOMEN PELVIS W CON 10/15/2018 4:54 PM FINDINGS: Lungs: Dependent atelectasis and scarring. Tiny calcified granuloma right lung base. Lung bases are negative for dominant mass or airspace consolidation. Pleural spaces: There is no evidence of pleural effusion or pneumothorax. Heart: Calcifications are present within the coronary arteries and thoracic aorta. Diaphragm: Sliding hiatal hernia. Liver: Liver is diffusely hypoattenuating and there are multiple punctate calcified granulomas. Gallbladder and bile ducts: Normal. No calcified stones. No ductal dilation. Pancreas: Pancreas is atrophied but otherwise unremarkable. Spleen: Multiple punctate calcified granulomas within the otherwise unremarkable spleen. Adrenal glands: Adrenal glands are prominent suggesting hyperplasia but without distinct nodule. Kidneys and ureters: Attenuating nodule in the periphery of the right kidney is most likely a hemorrhagic cyst. Further follow-up is recommended. Stomach and bowel: There appears to be an obstructing lesion at the level of the gastric antrum with massive fluid distension of the stomach. Minimal diverticulosis of the sigmoid colon. No surrounding inflammation or fluid. Appendix: No evidence of appendicitis. Intraperitoneal space: Unremarkable. No free air. No significant fluid collection. Vasculature: Calcifications within the aorta and its branches. Lymph nodes: Unremarkable. No enlarged lymph nodes. Urinary bladder: Webster catheter is present within the urinary bladder. Reproductive: Unremarkable as visualized. Bones/joints: Diffuse degenerative disc and facet disease result in multilevel central and foraminal stenosis within the lumbar spine. Rotoscoliosis. Soft tissues: Small fat containing umbilical hernia. IMPRESSION: 1. There appears to be an obstructing lesion at the level of the gastric antrum with massive fluid distension of the stomach. Further follow-up with endoscopic or double-contrast fluoroscopic studies recommended. 2. Hepatic steatosis. 3. Adrenal glands are prominent suggesting hyperplasia but without distinct nodule. 4. Attenuating nodule in the periphery of the right kidney is most likely a hemorrhagic cyst. Further follow-up is recommended. 5. Small fat containing umbilical hernia. 6. Minimal diverticulosis of the sigmoid colon. No surrounding inflammation or fluid. 7. Diffuse degenerative disc and facet disease result in multilevel central and foraminal stenosis within the lumbar spine. COMMENTS: Consistent with the [employer]'s Incidental Findings Committee white paper (J Am Braxton Radiol 2018): Any incidental renal lesion less than 1 cm or classified as too small to characterize, or any incidental cystic renal lesion characterized as simple-appearing, is likely benign. No follow-up imaging is recommended for these lesions per consensus recommendations based on imaging criteria.
[2021-08-16 21:51] LABS: Barbiturates Screen,Urine Negative ng/ml (<200)
[2021-08-16 21:52] LABS: Benzodiazepines Screen,Urine Negative ng/ml (<200); Cannabinoid Screen,Urine Negative ng/ml (<50)
[2021-08-16 21:53] LABS: Appearance,Urine CLEAR (Clear); Bilirubin,Urine Negative (Negative); Blood, Urine Negative (Negative); Cocaine Screen,Urine Negative ng/ml (<300); Color,Urine YELLOW (Yellow); Glucose,Urine (UA) Negative (Negative); Ketones,Urine Negative (Negative); Leukocyte Esterase,Urine TRACE (Negative); Nitrate,Urine Negative (Negative); PH,Urine 5.5 (5.0-8.5); Protein,Urine 2+ (Negative); Specific Gravity, Urine >= 1.030 (1.005-1.030); Urobilinogen,Urine 0.2 EU/dl (0.2)
[2021-08-16 21:54] LABS: Methadone Screen,Urine Negative ng/ml (<300); Opiate Screen,Urine Negative ng/ml (<300)
[2021-08-16 21:55] LABS: Phencyclidine Screen,Urine Negative ng/ml (<25)
[2021-08-16 21:56] LABS: Bacteria,Urine 1+ /lpf; RBC,Urine Occasional #/hpf (0-3); Troponin I < 0.01 ng/ml (0.00-0.034)
[2021-08-16 22:00] LABS: Procalcitonin 12.2 ng/mL (0.0-2.0); T4 (Thyroxine) 4.8 ug/dl (5.53-11.0)
[2021-08-16 22:04] LABS: Creatine Kinase 515 U/L (55-170); Hypochromasia 1+; Lymphocytes % 8 % (10-50); Monocytes % 11 % (2-9); Neutrophils % 81 % (42-76); Platelet Estimate Normal; Salicylate < 1.0 mg/dL (2.0-20.0); Total Cells Counted 100
[2021-08-16 22:05] LABS: Amylase 237 U/L (30-110); Lipase 28 U/L (23-300)
[2021-08-16 22:06] LABS: Ethyl Alcohol < 10 mg/dl (0-10)
[2021-08-16 22:07] LABS: Acetaminophen < 10 ug/ml (10-30); Erythrocyte Sedimentation Rate 16 mm/hr (0-20)
[2021-08-16 22:14] LABS: Thyroid Stimulating Hormone 0.89 uIU/mL (0.465-4.68)
--- NOTE | 2021-08-16 23:05 | PC.NURSE ---
called radiology to check status of vrad, she will chat with them.
[2021-08-17] VITALS: BP 107/65; PULSE 84; RESP 19; TEMP 37.7; O2SAT 99
--- NOTE | 2021-08-17 00:09 | XR_ITS ---
PROCEDURE INFORMATION: Exam: XR Chest Exam date and time: 08/17/2021 12:16 AM Age: 56 years old Clinical indication: Device placement; Ng tube; Additional info: Ngt placement confirmation TECHNIQUE: Imaging protocol: XR of the chest. Views: 1 view. COMPARISON: CR XR CHEST PORTABLE 08/16/2021 9:50 PM FINDINGS: Tubes, catheters and devices: Nasogastric tubing follows the expected contours of esophagus into stomach with distal tip and distal sideholes overlying the left upper quadrant the abdomen. Lungs: Unremarkable. No consolidation. Pleural spaces: Unremarkable. No pleural effusion. No pneumothorax. Heart/Mediastinum: Heart is upper limits normal in size. Bones/joints: Unremarkable. IMPRESSION: Nasogastric tubing appears to be appropriately configured.
--- NOTE | 2021-08-17 00:17 | PC.NURSE ---
PC to [facility], awaiting return call
[2021-08-17 00:30] VITALS: BP 109/72; PULSE 89; O2SAT 99
[2021-08-17 00:30] LABS: Occult Blood,Gastric Fluid Positive (Negative)
--- NOTE | 2021-08-17 00:46 | PC.NURSE ---
s/w access center w [facility] at capacity, [place] at capacity, and checkoing status at [facility].
--- NOTE | 2021-08-17 00:54 | PC.NURSE ---
Dr. Mas s/w hospitalist @ [facility] Dr. Khan
[2021-08-17 01:00] VITALS: BP 112/74; PULSE 88; O2SAT 98
--- NOTE | 2021-08-17 01:01 | PC.NURSE ---
Dr. Mas s/w Dr. Juan Manuel Martínez-GI with [facility]
[2021-08-17 01:09] LABS: Troponin I < 0.01 ng/ml (0.00-0.034)
[2021-08-17 01:12] LABS: Reflex Lactic Add Lactic Reflex
--- NOTE | 2021-08-17 01:20 | PC.NURSE ---
Dr. Mas s/w Dr. Marcano with [facility]. They have accepted pt
[2021-08-17 01:29] LABS: Lactic Acid Follow Up (RFLX 1) 1.7 mmol/L (0.7-2.1)
[2021-08-17 02:32] VITALS: BP 115/78; PULSE 85; RESP 20; TEMP 37.2; O2SAT 98
[2021-08-17 06:19] LABS: Occult Blood,Stool Positive (Negative)
== END 2021-08-17 03:10 | disposition short-term general hospital (02) ==
PROVIDERS: Emergency Provider Emergency Medicine; PCP Family Medicine
DX: K31.1 Adult hypertrophic pyloric stenosis (principal); N17.9 Acute kidney failure, unspecified; R93.5 Abnormal findings on diagnostic imaging of other abdominal regions, including retroperitoneum; E87.2 Acidosis; Z79.899 Other long term (current) drug therapy; Z88.0 Allergy status to penicillin; Z88.8 Allergy status to other drugs, medicaments and biological substances; J44.9 Chronic obstructive pulmonary disease, unspecified; E78.5 Hyperlipidemia, unspecified; I10 Essential (primary) hypertension; Z72.0 Tobacco use
CPT/HCPCS: 51702; 71045; 74176; 80053; 80305; 80329; 81001; 82150; 82272; 82550; 82803; 82962; 83605; 83690; 83735; 83880; 84145; 84436; 84443; 84484; 85007; 85025; 85651; 86140; 87040; 93005; 99291; C9803; G0328; J2405; U0003; U0005

== ENCOUNTER 2021-09-13 19:52 | Emergency (ER) | payer BC, SELFPAY ==
[2021-09-13] VITALS (10 sets, daily range): BP systolic 82–98; BP diastolic 46–65; PULSE 58–99; RESP 11–24; TEMP 36.5–36.9; O2SAT 77–99; BMI 26.6
--- NOTE | 2021-09-13 19:38 | ECG_ITS ---
APPROVED REPORT Exam: Resting ECG HR:85 bpm ECG Measurements Heart Rate 85 AXES MT 165 P 59 QRSd 103 QRS 15 QT 367 T 61 QTc [address]/T wave changes in inferior leads are old Late R wave progression Otherwise normal ECG Electronically signed by : Jaxon Almeida MD 09/15/2021 17:59:55
--- NOTE | 2021-09-13 19:42 | XR_ITS ---
PROCEDURE INFORMATION: Exam: XR Chest Exam date and time: 09/13/2021 7:54 PM Age: 56 years old Clinical indication: Shortness of breath; Additional info: SOB , abd pain TECHNIQUE: Imaging protocol: Radiologic exam of the chest. Views: 1 view. COMPARISON: CR XR CHEST PORTABLE 08/17/2021 12:16 AM FINDINGS: Lungs: Unremarkable. No consolidation. Pleural spaces: Unfortunately, the left lateral costophrenic angle is not included on the study. Heart/Mediastinum: Unremarkable. No cardiomegaly. Bones/joints: Unremarkable. IMPRESSION: 1. No acute findings. 2. Unfortunately, the left lateral costophrenic angle is not included on the study. This exam should have been repeated.
--- NOTE | 2021-09-13 19:49 | CT_ITS ---
PROCEDURE INFORMATION: Exam: CT Abdomen And Pelvis Without Contrast Exam date and time: 09/13/2021 8:02 PM Age: 56 years old Clinical indication: Abdominal pain; Localized; Lower; Additional info: Pain lower abdomen/groin TECHNIQUE: Imaging protocol: Computed tomography of the abdomen and pelvis without contrast. Radiation optimization: All CT scans at this facility use at least one of these dose optimization techniques: automated exposure control; mA and/or kV adjustment per patient size (includes targeted exams where dose is matched to clinical indication); or iterative reconstruction. COMPARISON: CT ABDOMEN PELVIS WO CON 08/16/2021 9:59 PM FINDINGS: Lungs: Dependent atelectasis and scarring. Diaphragm: Small sliding hiatal hernia. Liver: Punctate calcified granulomas within the liver. Gallbladder and bile ducts: Normal. No calcified stones. No ductal dilation. Pancreas: Atrophy of the otherwise unremarkable pancreas. Spleen: Punctate calcified granulomas within the spleen. Adrenal glands: Adrenal glands are negative for evidence of thickening or nodule. Kidneys and ureters: Subcentimeter hyperattenuating exophytic lesion emanating from the anterolateral right kidney is probably a hemorrhagic exophytic cyst. Solid malignancy is not excluded and follow-up is recommended. Stomach and bowel: Bowel perforation with free air scattered throughout the abdomen and pelvis, centered within the midline pelvis. Severe mucosal thickening, surrounding inflammatory stranding, haziness and fluid in association with the sigmoid colon where numerous diverticuli are identified. Most likely recently perforated inflamed diverticulum. Vermiform appendix measures 9.4 mm in greatest cross section with surrounding inflammatory stranding, haziness and fluid. This could be reactive due to the process within the pelvis. Acute appendicitis is not excluded. Appendix: See Stomach and bowel finding. Intraperitoneal space: 2 cm focal fluid collection posterior to the distal descending colon may reflect fluid in the colic gutter with abscess not excluded. Vasculature: Calcifications within the thoracic aorta and coronary arteries. Calcifications within the aorta and its branches. Lymph nodes: Unremarkable. No enlarged lymph nodes. Urinary bladder: Unremarkable as visualized. Reproductive: Unremarkable as visualized. Bones/joints: Degenerative spondylosis, rotoscoliosis and facet arthropathy are identified within the spine. Osteophytosis and eburnation of the sacroiliac joints and hips. Mild diffuse bone demineralization. Multilevel intervertebral vacuum disc phenomenon. Grade 1 anterolisthesis of L4 appears to be on the basis of chronic degenerative disc and facet disease. Diffuse degenerative disc and facet disease result in multilevel central and foraminal stenosis within the lower lumbar spine. Soft tissues: Small fat containing umbilical hernia. IMPRESSION: 1. Bowel perforation with free air scattered throughout the abdomen and pelvis, centered within the midline pelvis. 2. Severe mucosal thickening, surrounding inflammatory stranding, haziness and fluid in association with the sigmoid colon where numerous diverticuli are identified. Most likely recently perforated diverticulum in the setting of acute diverticulitis. 3. Vermiform appendix measures 9.4 mm in greatest cross section with surrounding inflammatory stranding, haziness and fluid. This could be reactive due to the process within the pelvis. Acute appendicitis is not excluded. 4. 2 cm focal fluid collection posterior to the distal descending colon may reflect fluid in the
[2021-09-13 19:51] LABS: Coronavirus 19, PCR Not Detected (NotDetected); Influenza A, PCR Not Detected (NotDetected); Influenza B, PCR Not Detected (NotDetected)
[2021-09-13 20:15] LABS: VBG Base Excess -5.3 mmol/L (-2.4-2.3); VBG HCO3 20.9 mmol/L (23-30); VBG Oxygen Saturation 60.2 % (50-70); VBG PH 7.32 mmol/L (7.31-7.41); VBG PO2 32.8 mmol/L (28-40); VBG Total CO2 22.2 mmol/L (23-27)
[2021-09-13 20:17] LABS: Basophils # 0.1 K/mm3 (0-0.2); Basophils % 0.3 % (0.1-2.0); Eosinophils # 0.1 K/mm3 (0.0-0.4); Eosinophils % 0.7 % (0.1-12.0); Hematocrit 32.7 % (42.0-52.0); Hemoglobin 10.4 g/dL (14.1-18.0); Lymphocytes # 1.2 K/mm3 (0.7-4.5); Lymphocytes % 5.6 % (10-50); Mean Corpuscular HGB Conc 31.9 g/dL (31.8-35.4); Mean Corpuscular Hemoglobin 29.1 pg (27.0-31.2); Mean Platelet Volume 7.7 fl (7.4-10.4); Monocytes # 0.7 K/mm3 (0.1-1.0); Monocytes % 3.4 % (1.7-9.3); Neutrophils # 18.6 K/mm3 (1.8-7.8); Neutrophils % 90.1 % (37.0-80.0); Platelet Count 482 K/mm3 (142-424); Red Blood Count 3.59 M/mm3 (4.60-6.20); Red Cell Distribution Width 13.6 % (11.5-17.5); White Blood Count 20.6 K/mm3 (4.8-10.8)
[2021-09-13 20:19] LABS: MANUAL DIFFERENTIAL MANUAL DIFFERENTIAL (MANUAL DIFF)
[2021-09-13 20:21] LABS: Chloride 102 mmol/L (98-107); Sodium 135 mmol/L (136-145)
[2021-09-13 20:22] LABS: Potassium 4.5 mmoL/L (3.5-5.1)
[2021-09-13 20:24] LABS: Alanine Aminotransferase 16 U/L (12-78); Alkaline Phosphatase 95 U/L (38-126); Anion Gap 13.5 mEq/L (5-15); Aspartate Amino Transferase 21 U/L (17-59); Bilirubin,Total 0.3 mg/dl (0.2-1.3); Blood Urea Nitrogen 45 mg/dl (9-20); Calcium 9.3 mg/dl (8.4-10.2); Carbon Dioxide 24 mmol/L (22.0-30.0); Creatine Kinase 48 U/L (55-170); Creatinine Clearance Estimated 22 mL/min (50-200); Estimated Glomerular Filt Rate 14 ml/min (>60); GFR (African American) 17 ML/MIN (>60); Glucose 143 mg/dl (74-100)
[2021-09-13 20:25] LABS: Albumin Level 3.6 g/dl (3.5-5.0); Albumin/Globulin Ratio 1.2 (1.1-1.8); Lipase 42 U/L (23-300); Total Protein,Serum 6.6 g/dl (6.3-8.2)
[2021-09-13 20:28] LABS: Activated Partial Thrombo Time 23.3 seconds (22.8-30.6); INR 0.94 (0.9-1.1); Prothrombin Time 10.7 seconds (10.1-12.5)
--- NOTE | 2021-09-13 20:29 | PC.NURSE ---
lab called critical cr of 4.5. notified
[2021-09-13 20:34] LABS: NT Pro Brain Natriuretic Pep. 279 pg/mL (0-125)
[2021-09-13 20:36] LABS: Ethyl Alcohol < 10 mg/dl (0-10)
--- NOTE | 2021-09-13 20:37 | HMH.EDNVD ---
ED Disposition Clinical Impression: Perforated bowel, GRETTA (acute kidney injury) Diverticulitis large intestine Qualifiers: Diverticulitis bleeding: without bleeding Diverticulitis complication: with perforation Qualified Code(s): K57.20 - Diverticulitis of large intestine with perforation and abscess without bleeding Acute appendicitis Qualifiers: Acute appendicitis type: unspecified acute appendicitis type Qualified Code(s): K35.80 - Unspecified acute appendicitis Disposition: Xfer Short-Term Hosp Condition on Discharge: Critical Instructions: DI for Acute Abdominal Pain Referrals: Provider,Referral, MD [Primary Care Provider] - - Critical Care Critical Care Time: Yes Attestation: On 09/13/21, the high probability of a clinically significant, sudden or life threatening deterioration of the following system(s) required my full and direct attention, intervention and personal management. The time I documented below is in addition to time spent performing reported procedures but includes the following listed in this critical care notation. Total Critical Care Time: 60 Vital system(s) involved:: Shock (Septic) My critical care processes included: Assessment & monitoring of V/S, Initial and Re-exams, Data Review/Interpretation, Coordinating Care, Medication Orders and management, Documentation Medical Decision Making - Medical Records Medical records reviewed: Yes: I reviewed the patient's medical records. - David Inquiry Pt receiving controlled substance: No Vital Signs: 09/13/21 19:48 Temperature 97.7 F Temperature Source Oral Pulse Rate [Apical] 80 Respiratory Rate 16 Blood Pressure [Right Arm] 96/65 L Blood Pressure Mean [Right Arm] 75 Blood Pressure Source [Right Arm] Automatic Cuff Blood Pressure Position [Right Arm] Sitting 02 Sat by Pulse Oximetry 95 Oxygen Delivery Method Room Air - Lab Data Lab results reviewed: Yes: I reviewed the patient's lab results. Lab Results 09/13/21 19:45: SARS-CoV-2 (PCR) Not detected, Influenza A Untype (PCR) Not detected, Influenza Type B (PCR) Not detected 09/13/21 20:11: WBC 20.6 H*, RBC 3.59 L, Hgb 10.4 L, Hct 32.7 L, MCV 91.0, MCH 29.1, MCHC 31.9, RDW 13.6, Plt Count 482 H, MPV 7.7, Neut % (Auto) 90.1 H, Lymph % (Auto) 5.6 L, [place] % (Auto) 3.4, Eos % (Auto) 0.7, Baso % (Auto) 0.3, Neut # (Auto) 18.6 H, Lymph # (Auto) 1.2, [place] # (Auto) 0.7, Eos # (Auto) 0.1, Baso # (Auto) 0.1, Total Counted 100, Neutrophils % (Manual) 84 H, Band Neutrophils % 1.0, Lymphocytes % (Manual) 10, Monocytes % (Manual) 5, Platelet Estimate Normal, RBC Morphology Normal 09/13/21 20:11: PT 10.7, INR 0.94, APTT 23.3 09/13/21 20:11: Sodium 135 L, Potassium 4.5, Chloride 102, Carbon Dioxide 24, Anion Gap 13.5, BUN 45 H, Creatinine 4.50 H, Estimated Creat Clear 22, Estimated GFR 14 L*, Est GFR ( Amer) 17 L*, Glucose 143 H, Calcium 9.3, Total Bilirubin 0.3, AST 21, ALT 16, Alkaline Phosphatase 95, Total Creatine Kinase 48 L, Troponin I 0.23 H, NT-Pro-B Natriuret Pep 279 H, Total Protein 6.6, Albumin 3.6, Globulin 3.0, Albumin/Globulin Ratio 1.2, Lipase 42, Acetone Level None detected 09/13/21 20:11: Plasma/Serum Alcohol < 10 09/13/21 20:11: VBG pH 7.32, VBG pCO2 42.0, VBG pO2 32.8, VBG HCO3 20.9 L, VBG Total CO2 22.2 L, VBG O2 Saturation 60.2, VBG Base Excess -5.3 L Result diagrams: 09/13/21 20:11 09/13/21 20:11 Orders (Tests/Meds): ED MEDICATIONS Generic Name Dose Route Start Last Admin Trade Name Freq PRN Reason Stop Dose Admin Sodium Chloride 1,000 mls @ 999 mls/hr 09/13/21 19:45 Sod Chlor 0.9% 1000ml Bag IV 09/13/21 20:45 .[id number] RADHA Discontinued Medications Generic Name Dose Route Start Last Admin Trade Name Freq PRN Reason Stop Dose Admin Ondansetron HCl 4 mg 09/13/21 19:43 Ondansetron 4mg/2ml Vial IV 09/13/21 19:44 ONCE ONE ORDERS Category Date Time Status Lactic Acid Stat Lab 09/13/21 19:42 Ordered Troponin I Q3H Lab 09/13/21 22:45 Or
[2021-09-13 20:40] LABS: Acetone, Serum (Rapid) None Detected (None Detect)
[2021-09-13 20:45] LABS: Troponin I 0.23 ng/ml (0.00-0.034)
[2021-09-13 20:51] LABS: Lymphocytes % 10 % (10-50); Monocytes % 5 % (2-9); Neutrophils % 84 % (42-76); Platelet Estimate Normal; RBC Morphology Normal; Total Cells Counted 100
--- NOTE | 2021-09-13 21:10 | PC.NURSE ---
Dr. Mas on phone with
[2021-09-13 21:14] LABS: Lactic Acid 1.8 mmol/L (0.7-2.1)
[2021-09-13 21:15] LABS: Microscopic, Urine URINE MICROSCOPIC (MICROSCOPIC)
--- NOTE | 2021-09-13 21:42 | PC.NURSE ---
[facility] on phone with [employer]
[2021-09-13 21:50] LABS: Appearance,Urine CLEAR (Clear); Blood, Urine Negative (Negative); Color,Urine YELLOW (Yellow); Glucose,Urine (UA) TRACE (Negative); Ketones,Urine TRACE (Negative); Leukocyte Esterase,Urine Negative (Negative); Nitrate,Urine Negative (Negative); PH,Urine 5.5 (5.0-8.5); Protein,Urine 1+ (Negative); Specific Gravity, Urine >= 1.030 (1.005-1.030); Urobilinogen,Urine 0.2 EU/dl (0.2)
[2021-09-13 21:56] LABS: Bilirubin,Urine Negative (Negative)
[2021-09-13 22:02] LABS: Benzodiazepines Screen,Urine Negative ng/ml (<200)
[2021-09-13 22:03] LABS: Amphetamine/Metha Screen,Urine Positive ng/ml (<1000); Barbiturates Screen,Urine Negative ng/ml (<200)
[2021-09-13 22:04] LABS: Cannabinoid Screen,Urine Negative ng/ml (<50); Cocaine Screen,Urine Negative ng/ml (<300)
[2021-09-13 22:05] LABS: Methadone Screen,Urine Negative ng/ml (<300)
[2021-09-13 22:06] LABS: Opiate Screen,Urine Negative ng/ml (<300); Phencyclidine Screen,Urine Negative ng/ml (<25)
[2021-09-13 22:24] LABS: Bacteria,Urine 2+ /lpf; RBC,Urine Occasional #/hpf (0-3)
== END 2021-09-13 22:14 | disposition short-term general hospital (02) ==
PROVIDERS: Emergency Medicine; Emergency Provider Emergency Medicine
DX: K57.20 Diverticulitis of large intestine with perforation and abscess without bleeding (principal); N17.9 Acute kidney failure, unspecified; K35.80 Unspecified acute appendicitis; Z79.899 Other long term (current) drug therapy; Z88.0 Allergy status to penicillin; Z88.8 Allergy status to other drugs, medicaments and biological substances; J44.9 Chronic obstructive pulmonary disease, unspecified; E78.5 Hyperlipidemia, unspecified; I10 Essential (primary) hypertension; R56.9 Unspecified convulsions; Z72.0 Tobacco use
CPT/HCPCS: 51702; 71045; 74176; 80053; 80305; 81001; 82009; 82550; 82803; 83605; 83690; 83880; 84484; 85007; 85025; 85610; 85730; 87040; 87086; 93005; 96365; 96375; 99291; C9803; J2405; U0003; U0005